=== PATIENT | female | born 1945 | race Two or more races ===

== ENCOUNTER 2018-07-05 17:50 | Emergency (ER) | payer MEDICARE, OTHER ==
--- NOTE | 2018-07-05 18:58 | RAD ---
KNEE LEFT 3V History: Severe left lateral knee pain, no trauma. Mild degenerative spurring. No acute fracture or aggressive bone destruction. Vascular calcification. IMPRESSION: No acute fracture or dislocation. Electronically signed by: Felipe Diaz MD (07/05/2018 6:55 PM) [facility]
--- NOTE | 2018-07-05 19:01 | PHYS DOC ---
Past History Past Medical History: Arthritis, Diabetes, Glaucoma, High Cholesterol, Hypertension, Other Past Medical History Rheumatoid arthritis Past Surgical History: Cholecystectomy, Hysterectomy, Lumbar Laminectomy Smoking: Non-smoker Alcohol Use: None Drug Use: None Adult General Chief Complaint Chief Complaint: KNEE INJURY HPI HPI Patient is a 73 year old female who presents with left knee pain that she states began abruptly three days ago when she was getting out of bed. The pain is described as a sharp stabbing pain on the lateral aspect of her left knee that reaches a maximal 10/10 pain when standing or moving. She has been using her 's walker to move around the house since the pain began. She has been taking naproxen BID without relief and the pain has actually worsened with the use of a heating pad at home. Laying down and decreasing movement decreases the pain. She states that she feels the left knee may be slightly more swollen than the right but denies any recent trauma or increased use that precedes the onset of her discomfort. Of note, she says that she is scheduled to see a Second Watch Sergeant on July 14 for evaluation of arthritis effecting predominantly her hands and low back. She denies any numbness, tingling, or bruising. Review of Systems Review of Systems Constitutional: Denies fever or chills [] Eyes: Denies change in visual acuity, or eye pain [] HENT: Denies nasal congestion or sore throat [] Respiratory: Denies cough or shortness of breath [] Cardiovascular: Denies chest pain or palpitations [] GI: Denies abdominal pain, nausea, vomiting or diarrhea [] : Denies dysuria or hematuria [] Musculoskeletal: Reports chronic low back pain, left knee pain, b/l wrist pain [] Integument: Denies ecchymosis or erythema [] Neurologic: Denies weakness or paresthesias [] Complete review of systems found to be within normal limits, except as documented in this note. Current Medications Current Medications Current Medications Medications (Trade) Dose Ordered Sig/Cecilio Start Time Stop Time Status Last Admin Dose Admin Dexamethasone (Decadron) 10 mg 1X ONCE 07/05/18 18:45 07/05/18 18:46 UNV Ketorolac Tromethamine (Toradol 15mg Vial) 15 mg 1X ONCE 07/05/18 18:45 07/05/18 18:46 UNV Allergies Allergies Allergies Coded Allergies Type Severity Reaction Last Updated Verified No Known Drug Allergies 07/05/18 No Physical Exam Physical Exam Constitutional: Well developed, obese, no acute distress, non-toxic appearance. [] HENT: Normocephalic, atraumatic. [] Eyes: EOMI, conjunctiva normal, no discharge. [] Cardiovascular: Heart rate regular rhythm Lungs & Thorax: Bilateral breath sounds clear to auscultation [] Abdomen: Soft and nontender [] Skin: Warm, dry, no erythema or ecchymosis over knees b/l [] Back: Scoliosis with tenderness to palpation in the left lumbar paraspinal musculature [] Extremities: Right knee full range of motion. Left knee full range of motion with pain throughout movements. No joint laxity noted in left knee upon varus or valgus testing. Negative anterior and posterior drawer. Increased pain upon Parish testing of left knee. [] Neurologic: Alert and oriented, b/l LE strength testing +5/5, sensation grossly intact LE b/l[] Psychologic: Affect normal, judgement normal, mood normal. [] Current Patient Data Vital Signs Vital Signs Date Time Temp Pulse Resp B/P (MAP) Pulse Ox O2 Delivery O2 Flow Rate FiO2 07/05/18 18:10 98.3 76 18 97 Room Air EKG EKG [] Radiology/Procedures Radiology/Procedures PROCEDURE: KNEE LEFT 3V KNEE LEFT 3V History: Severe left lateral knee pain, no trauma. Mild degenerative spurring. No acute fracture or aggressive bone destruction. Vascular calcification. IMPRESSION: No acute fracture or dislocation. Electronically signed by: Felipe Diaz MD (07/05/2018 6:55 PM) [facility][] Course & Med Decision Making Course & Med Decision Making Pertinent Imaging studies reviewed. (See chart for details) 73 year old female presents for acute onset of severe left lateral knee pain. Patient rates pain 10/10 with exertion but is pleasant and conversational during physical exam although she does exhibit discomfort. Denies any recent trauma or increased use of left knee. Patient is without weakness or paresthesias of LE and has pulses intact b/l. Plain films of left knee show no evidence of acute fracture or dislocation although there is some degenerative spurring present. Patient has an upcoming appointment on July 14 with her Second Watch Sergeant for f urther evaluation of arthritis that has predominantly effected her hands and back. Discussed with her the potential need for further imaging modalities on an outpatient basis such as MRI for evaluation of etiologies such as meniscal injury. Pain addressed with interval improvement. Patient agrees to discharge home and maintain her upcoming followup. Discussed the importance of rest, intermitting cold compresses, compression and elevation at home as well as alternating Tylenol and ibuprofen. Patient stable for discharge with outpatient follow-up with PCP/Orthopedics. Orthopedic referral provided. Discussed findings and plan with patient and family, who acknowledge understanding and agreement. [] Dragon Disclaimer Dragon Disclaimer This electronic medical record was generated, in whole or in part, using a voice recognition dictation system. Splinting Splinting : Location: Left knee Pre-Made Type: REE bandage Pre-Proc Neuro Vasc Exam: normal Post-Proc Neuro Vasc Exam: normal, unchanged from pre-exam Departure Departure: Impression: Primary Impression: Knee pain, acute Disposition: 01 HOME, SELF-CARE Condition: STABLE Referrals: TAVO AWAD (PCP) Patient Instructions: Knee Pain, [id number] Scripts Ibuprofen (MOTRIN IB) 200 Mg Tablet 600 MG PO TID PRN PRN for PAIN, #30 TAB Prov: FELIPE BAUMANN DO 07/05/18 Problem Qualifiers Primary Impression: Knee pain, acute Laterality: left Qualified Codes: M25.562 - Pain in left knee FELIPE BAUMANN DO July 05, 2018 19:01
[2018-07-05] MEDS: KETOROLAC 15 MG/ML VIAL. IM ONE (19:14)
[2018-07-05] MEDS: DEXAMETHASONE 4 MG TABLET PO ONE (19:14)
[2018-07-05] MEDS ORDERED: IBUP200T44 PO (19:28)
[2018-07-05 19:43] VITALS: BP 132/71
== END 2018-07-05 19:45 | disposition home or self-care (01) ==
LOC: ER 17:50
DX: M25.562 Pain in left knee (principal); M25.532 Pain in left wrist; M25.531 Pain in right wrist; G89.29 Other chronic pain; M54.5 Low back pain; M06.9 Rheumatoid arthritis, unspecified; E11.39 Type 2 diabetes mellitus with other diabetic ophthalmic complication; H42 Glaucoma in diseases classified elsewhere; E78.00 Pure hypercholesterolemia, unspecified; I10 Essential (primary) hypertension
CPT/HCPCS: 73562; 96372; 99284; J1885; J8540

== ENCOUNTER 2019-03-27 12:40 | Emergency (ER) | payer MEDICARE, OTHER ==
[~2019-03-27] VITALS: Ht 162.6 cm; Wt 78.5 kg
[~2019-03-27 12:40] MED LIST: IBUP200T44 PO
[2019-03-27 12:52] VITALS: BP 146/92
--- NOTE | 2019-03-27 13:00 | PHYS DOC ---
Past History Past Medical History: Arthritis, Diabetes, Glaucoma, High Cholesterol, Hypertension, Other Past Surgical History: Cholecystectomy, Hysterectomy, Lumbar Laminectomy Smoking: Non-smoker Alcohol Use: None Drug Use: None Adult General Chief Complaint Chief Complaint: PAIN ON URINATION [facility] HPI Patient is a 74 year old F who presents with urinary burning, frequency and urgency over the past 24-48 hours. She feels that these symptoms are consistent with previous urinary tract infections. She does have a history of well- controlled diabetes, hypertension, and hyperlipidemia. She denies flank pain or nausea/vomiting. She has no other associated symptoms. She has no exasperating or relieving factors. Review of Systems Review of Systems Constitutional: Denies fever or chills [] Eyes: Denies change in visual acuity, redness, or eye pain [] HENT: Denies nasal congestion or sore throat [] Respiratory: Denies cough or shortness of breath [] Cardiovascular: No additional information not addressed in HPI [] GI: Denies abdominal pain, nausea, vomiting, bloody stools or diarrhea [] : Negative except history of present illness Musculoskeletal: Denies back pain or joint pain [] Integument: Denies rash or skin lesions [] Neurologic: Denies headache, focal weakness or sensory changes [] Endocrine: Denies polyuria or polydipsia [] All other systems were reviewed and found to be within normal limits, except as documented in this note. Family History Family History No pertinent family medical history was reported Current Medications Current Medications Current medications were reviewed Allergies Allergies Allergies Coded Allergies Type Severity Reaction Last Updated Verified No Known Drug Allergies 07/05/18 No Physical Exam Physical Exam Constitutional: Well developed, well nourished, no acute distress, non-toxic appearance. [] HENT: Normocephalic, atraumatic Eyes: EOMI, conjunctiva normal, no discharge. [] Neck: Normal range of motion, no tenderness, supple, no stridor. [] Cardiovascular:Heart rate regular rhythm Lungs & Thorax: Bilateral breath sounds clear to auscultation [] Abdomen: Bowel sounds normal, soft, no tenderness, no masses, no pulsatile masses. [] Skin: Warm, dry, no erythema, no rash. [] Back: no CVA tenderness. [] Extremities: No tenderness, no cyanosis, no clubbing, ROM intact, no edema. [] Neurologic: Alert and oriented X 3, normal motor function, normal sensory function, no focal deficits noted. [] Psychologic: Affect normal, judgement normal, mood normal. [] Current Patient Data Vital Signs Vital Signs Date Time Temp Pulse Resp B/P (MAP) Pulse Ox O2 Delivery O2 Flow Rate FiO2 03/27/19 12:52 98.3 77 18 100 Room Air Lab Results Laboratory Tests Test 03/27/19 12:56 Urine Collection Type Unknown Urine Color Yellow Urine Clarity Clear Urine pH 6.5 Urine Specific [place] 1.015 Urine Protein Neg (NEG-TRACE) Urine Glucose (UA) Neg mg/dL (NEG) Urine Ketones (Stick) Neg mg/dL (NEG) Urine Blood Neg (NEG) Urine Nitrite Neg (NEG) Urine Bilirubin Neg (NEG) Urine Urobilinogen Dipstick 0.2 mg/dL (0.2 mg/dL) Urine Leukocyte Esterase Trace (NEG) Urine RBC 0 /HPF (0-2) Urine WBC 5-10 /HPF (0-4) Urine Squamous Epithelial Cells None /LPF Urine Bacteria Few /HPF (0-FEW) EKG EKG [] Radiology/Procedures Radiology/Procedures [] Course & Med Decision Making Course & Med Decision Making Pertinent Labs and Imaging studies reviewed. (See chart for details) [] Dragon Disclaimer Dragon Disclaimer This electronic medical record was generated, in whole or in part, using a voice recognition dictation system. Departure Departure: Impression: Primary Impression: UTI (urinary tract infection) Disposition: HOME, SELF-CARE Condition: STABLE Referrals: ROCIO OCAMPO DO (PCP) Patient Instructions: Urinary Tract Infection Additional Instructions: Meghan was seen in the emergency department for urinary symptoms. No emergency medical condition was found on history physical exam. Her symptoms are most consistent with urinary tract infection. She was started on antibiotic. She was advised follow up with her primary care doctor as needed for further management. She was also advised to return to the emergency room if she develops new or worsening symptoms. Scripts Cefdinir (CEFDINIR) 300 Mg Capsule 1 CAP PO BID for 5, #14 CAP Prov: LOKESH GALICIA MD 03/27/19 Problem Qualifiers Primary Impression: UTI (urinary tract infection) Urinary tract infection type: acute cystitis Hematuria presence: without hematuria Qualified Codes: N30.00 - Acute cystitis without hematuria LOKESH GALICIA MD Mar 27, 2019 13:00
[2019-03-27 13:37] LABS: CLARITY,URINE CLEAR; COLOR,URINE YELLOW
[2019-03-27 13:38] LABS: BACTERIA,URINE FEW /HPF (0-FEW); BILIRUBIN,URINE NEG (NEG); GLUCOSE,URINE NEG (NEG); NITRITE,URINE NEG (NEG); RBC,URINE 0 /HPF (0-2); UROBILINOGEN,URINE 0.2 mg/dL (0.2 mg/dL)
[2019-03-27] MEDS ORDERED: CEFD300C PO (14:03)
== END 2019-03-27 14:21 | disposition home or self-care (01) ==
LOC: ER 12:40
DX: N39.0 Urinary tract infection, site not specified (principal); E11.9 Type 2 diabetes mellitus without complications; I10 Essential (primary) hypertension; M19.90 Unspecified osteoarthritis, unspecified site; E78.00 Pure hypercholesterolemia, unspecified; Z90.710 Acquired absence of both cervix and uterus; Z90.49 Acquired absence of other specified parts of digestive tract
CPT/HCPCS: 81001; 87086; 87186; 99284

== ENCOUNTER → 2019-10-19 | Outpatient (CLI) | payer MEDICARE, OTHER ==
[~2019-10-19] MED LIST changes: +CEFD300C PO
== END | disposition home or self-care (01) ==
LOC: LAB 09:43
PROVIDERS: ATTEND Registered Nurse
DX: Z01.818 Encounter for other preprocedural examination (principal); Z11.59 Encounter for screening for other viral diseases; H26.9 Unspecified cataract
CPT/HCPCS: U0003-CS

== ENCOUNTER → 2019-10-23 | Day surgery (SDC) | payer MEDICARE, OTHER ==
[~2019-10-23] MED LIST changes: +BALANCED SALT IRRIG OPHTH SOLN 15 ML BOTTLE. IRR ONE; +CATARACT OPHTH GEL 0.5 ML SYRINGE. OS ONE; +CHONDROIT-SOD-HYALURONATE KIT. OS ONE; +EPINEPHrine AMPULE 0.5 MG in BALANCED SALT IRRIG SOLN PLUS 500 ML IO ONE; +ERYTHROMYCIN 0.5% OPHTH OINTMENT 1GM TUBE. OS ONE; +HYALURONIDASE 75UNITS in LIDOCAINE 2% PF OPHTH 10 ML SYRINGE. ONE; +HYALURONIDASE 75UNITS in LIDOCAINE 2% PF OPHTH 10 ML SYRINGE. OS ONE; +IPRATRPIUM/ALBUTEROL 0.5/2.5MG 3 ML NEBU. NEB PRN; +IV RINGERS SOLUTION,LACTATED 1,000 ML IV SCH; +KETOROLAC TROMETHAMINE 0.5% OPHTH SOLUTION BOTTLE. ONE; +KETOROLAC TROMETHAMINE 0.5% OPHTH SOLUTION BOTTLE. OS SCH; +MIDAZOLAM HCL PF 2 MG/2 ML VIAL. IV ONE; +MOXIFLOXACIN 0.5% OPHTH SOLUTION 3ML BOTTLE. OS SCH; +ONDANSETRON PF 4 MG/2 ML VIAL. IV PRN; +POVIDONE-IODINE 5% OPHTH SOLUTION 30ML BOTTLE. OS ONE; +PROPOFOL 10,000 MCG/ML (20ML) VIAL IV ONE; +TETRACAINE 0.5% OPHTH SOLUTION 4ML BOTTLE. OS ONE; +TETRACAINE 0.5% OPHTH SOLUTION 4ML BOTTLE. OU ONE; +prednisoLONE ACETATE 1% OPHTH SUSPENSION 5ML BOTTLE. ONE; +prednisoLONE ACETATE 1% OPHTH SUSPENSION 5ML BOTTLE. OS SCH
[2019-10-23] MEDS: MOXIFLOXACIN 0.5% OPHTH SOLUTION 3ML BOTTLE. OS SCH ×3 (08:49→08:59)
--- NOTE | 2019-10-23 09:30 | PDOC4 ---
Phaco IOL/Cataract/OS Date of Procedure: Oct 23, 2019 Preoperative Diagnosis: Senile Cataract, Left Eye Postoperative Diagnosis: Senile Cataract, Left Eye Anesthesia: Local (Block) with monitored anesthesia care Surgeon: Amanda Salinas D.O. Procedure: Left Phacoemulsification with Intraocular Lens Implant Findings: Senile Cataract Indications: Worsening vision interfering with patient's lifestyle Narrative: After discussing the risks, complications and alternatives, including but not limited to loss of vision, infection, bleeding, swelling, anesthetic reaction, capsule rupture with vitreous loss, etc., the patient was given a peribulbar block under mild IV sedation and cardiac monitoring. Pressure was applied to the eye for approximately 10 minutes. The patient was transferred to the main operating room and was prepped and draped in the usual sterile fashion and positioned under the microscope. A lid speculum was placed. A temporal clear corneal incision was made with a keratome and viscoelastic was injected into the eye. A side port incision was made. A continuous tear capsulorrhexis was performed, then hydrodissection was accomplished with balanced salt solution. The phacoemulsification needle was placed in the eye and the nucleus was emulsified. The remaining cortical material was removed with the irrigation and aspiration apparatus. The capsule was polished as needed. The posterior capsule was noted to be clean and intact. Viscoelastic was injected into the eye inflating the capsular bag. An intraocular lens was injected into the eye, unfolding as desired and was positioned in the capsular bag. The viscoelastic was aspirated from the eye. The wound edges were hydrated with balanced salt solution and there were no leaks. Viscoelastic was injected over the limbal incisions. Antibiotic and steroid were placed on the eye. The lid speculum was removed, the eye patched shut and a Reyes shield applied. There were no complications and the patient was taken to the PACU in good condition. AMANDA SALINAS DO Oct 23, 2019 09:30
[2019-10-23 09:49] VITALS: BP 124/51
== END | disposition home or self-care (01) ==
LOC: SURG 07:28
PROVIDERS: ATTEND Ophthalmology
DX: H25.12 Age-related nuclear cataract, left eye (principal); E11.36 Type 2 diabetes mellitus with diabetic cataract; I10 Essential (primary) hypertension; M19.90 Unspecified osteoarthritis, unspecified site; G47.33 Obstructive sleep apnea (adult) (pediatric); Z90.710 Acquired absence of both cervix and uterus; Z98.890 Other specified postprocedural states; Z79.899 Other long term (current) drug therapy; Z79.84 Long term (current) use of oral hypoglycemic drugs
CPT/HCPCS: 66984; 82947; J0171; J2704; V2632

== ENCOUNTER 2020-03-04 13:41 | Inpatient (IN) | payer MEDICARE, OTHER ==
[~2020-03-04] VITALS: Ht 152.4 cm; Wt 77.5 kg
[~2020-03-04 13:41] MED LIST changes: -BALANCED SALT IRRIG OPHTH SOLN 15 ML BOTTLE. IRR ONE; -CATARACT OPHTH GEL 0.5 ML SYRINGE. OS ONE; -CHONDROIT-SOD-HYALURONATE KIT. OS ONE; -EPINEPHrine AMPULE 0.5 MG in BALANCED SALT IRRIG SOLN PLUS 500 ML IO ONE; -ERYTHROMYCIN 0.5% OPHTH OINTMENT 1GM TUBE. OS ONE; -HYALURONIDASE 75UNITS in LIDOCAINE 2% PF OPHTH 10 ML SYRINGE. ONE; -HYALURONIDASE 75UNITS in LIDOCAINE 2% PF OPHTH 10 ML SYRINGE. OS ONE; -IPRATRPIUM/ALBUTEROL 0.5/2.5MG 3 ML NEBU. NEB PRN; -IV RINGERS SOLUTION,LACTATED 1,000 ML IV SCH; -KETOROLAC TROMETHAMINE 0.5% OPHTH SOLUTION BOTTLE. ONE; -KETOROLAC TROMETHAMINE 0.5% OPHTH SOLUTION BOTTLE. OS SCH; -MIDAZOLAM HCL PF 2 MG/2 ML VIAL. IV ONE; -MOXIFLOXACIN 0.5% OPHTH SOLUTION 3ML BOTTLE. OS SCH; -ONDANSETRON PF 4 MG/2 ML VIAL. IV PRN; -POVIDONE-IODINE 5% OPHTH SOLUTION 30ML BOTTLE. OS ONE; -PROPOFOL 10,000 MCG/ML (20ML) VIAL IV ONE; -TETRACAINE 0.5% OPHTH SOLUTION 4ML BOTTLE. OS ONE; -TETRACAINE 0.5% OPHTH SOLUTION 4ML BOTTLE. OU ONE; -prednisoLONE ACETATE 1% OPHTH SUSPENSION 5ML BOTTLE. ONE; -prednisoLONE ACETATE 1% OPHTH SUSPENSION 5ML BOTTLE. OS SCH
[2020-03-04 14:36] LABS: BASO % 0 % (0-3); EOS % 0 % (0-3); HEMATOCRIT 36.6 % (36.0-47.0); HEMOGLOBIN 11.9 g/dL (12.0-15.5); LYMPH # 0.9 x10^3/uL (1.0-4.8); LYMPH % 25 % (24-48); MEAN CORPUSCULAR HEMOGLOBIN 28 pg (25-35); MEAN CORPUSCULAR HGB CONC 33 g/dL (31-37); MEAN CORPUSCULAR VOLUME 85 fL (79-100); MONO # 0.4 x10^3/uL (0.0-1.1); MONO % 11 % (0-9); NEUT # 2.3 x10^3uL (1.8-7.7); NEUT % 64 % (31-73); PLATELET COUNT 250 x10^3/uL (140-400); RED BLOOD COUNT 4.32 x10^6/uL (3.50-5.40); RED CELL DISTRIBUTION WIDTH 17.1 % (11.5-14.5); WHITE BLOOD COUNT 3.7 x10^3/uL (4.0-11.0)
--- NOTE | 2020-03-04 14:45 | RAD ---
Examination: XR CHEST 1V History: Reason: covid + 02/26, feels fatigued / Spl. Instructions: / History: Comparison/Correlation: None Findings: Portable erect frontal view of the chest was obtained. Limited pulmonary infiltration noted . The size and pulmonary vasculature are normal. No infiltrate. Minimal linear atelectasis in the ret rocardiac basal aspect is present. Bony structures are intact. Impression: No infiltrate. Electronically signed by: Don Goodman MD (03/04/2020 2:42 PM) [id number]
[2020-03-04 15:00] LABS: ALBUMIN 3.3 g/dL (3.4-5.0); ALBUMIN/GLOBULIN RATIO 0.8 (1.0-1.7); ALK PHOS 63 U/L (46-116); ALT (SGPT) 25 U/L (14-59); ANION GAP 9 (6-14); AST (SGOT) 33 U/L (15-37); BLOOD UREA NITROGEN 18 mg/dL (7-20); BUN/CREATININE RATIO 18 (6-20); CALCIUM 8.6 mg/dL (8.5-10.1); CARBON DIOXIDE 28 mmol/L (21-32); CHLORIDE 99 mmol/L (98-107); GFR 54.2; GLUCOSE 93 mg/dL (70-99); SODIUM 136 mmol/L (136-145); TOTAL BILIRUBIN 0.3 mg/dL (0.2-1.0); TOTAL PROTEIN 7.4 g/dL (6.4-8.2)
[2020-03-04 15:07] LABS: POTASSIUM 2.9 mmol/L (3.5-5.1)
[2020-03-04] MEDS ORDERED: POTASSIUM CHLORIDE 20 MEQ TABLET.ER. PO ONE (15:09)
--- NOTE | 2020-03-04 15:40 | PHYS DOC ---
Past History Past Medical History: Arthritis, Diabetes, Glaucoma, High Cholesterol, Hypertension, Other Past Surgical History: Cholecystectomy, Hysterectomy, Lumbar Laminectomy Smoking: Non-smoker Alcohol Use: None Drug Use: None General Adult EDM: Chief Complaint: FATIGUE HPI: HPI: Patient is a 75-year-old female who presents to the emergency department with complaints of increased fatigue after testing positive for COVID-19 on February 27, 2020. Patient denies any chest pain, shortness of breath, palpitations, nausea, vomiting, abdominal pain, or headache. She states she has had aching in both of her shoulders and her hips and a fever. She also reports that she has had 2 or 3 episodes of diarrhea today. She denies any blood in her stool. Patient currently denies any pain. Review of Systems: Review of Systems: Complete ROS is negative unless otherwise noted in HPI. Current Medications: Current Meds: Current Medications Medications (Trade) Dose Ordered Sig/Cecilio Start Time Stop Time Status Last Admin Dose Admin Potassium Chloride (Klor-Con) 20 meq STK-MED ONCE 03/04/20 15:09 03/04/20 15:10 DC Allergies: Allergies: Allergies Coded Allergies Type Severity Reaction Last Updated Verified No Known Drug Allergies 10/15/19 No Physical Exam: PE: See Above Constitutional: Well developed, well nourished, no acute distress, non-toxic appearance. [] HENT: Normocephalic, atraumatic, bilateral external ears normal, nose normal. [] Eyes: PERRLA, EOMI, conjunctiva normal, no discharge. [] Neck: Normal range of motion, no stridor. [] Cardiovascular:Heart rate regular rhythm Lungs & Thorax: Respirations even and unlabored, no retractions, no respiratory distress, oxygen saturation 89-92% on room air Skin: Warm, dry, no erythema, no rash. [] Extremities: No cyanosis, ROM intact, no edema. [] Neurologic: Alert and oriented X 3, no focal deficits noted. [] Psychologic: Affect normal, judgement normal, mood normal. [] Current Patient Data: Labs: Laboratory Tests Test 03/04/20 14:04 White Blood Count 3.7 x10^3/uL (4.0-11.0) L Red Blood Count 4.32 x10^6/uL (3.50-5.40) Hemoglobin 11.9 g/dL (12.0-15.5) L Hematocrit 36.6 % (36.0-47.0) Mean Corpuscular Volume 85 fL (79-100) Mean Corpuscular Hemoglobin 28 pg (25-35) Mean Corpuscular Hemoglobin Concent 33 g/dL (31-37) Red Cell Distribution Width 17.1 % (11.5-14.5) H Platelet Count 250 x10^3/uL (140-400) Neutrophils (%) (Auto) 64 % (31-73) Lymphocytes (%) (Auto) 25 % (24-48) Monocytes (%) (Auto) 11 % (0-9) H Eosinophils (%) (Auto) 0 % (0-3) Basophils (%) (Auto) 0 % (0-3) Neutrophils # (Auto) 2.3 x10^3uL (1.8-7.7) Lymphocytes # (Auto) 0.9 x10^3/uL (1.0-4.8) L Monocytes # (Auto) 0.4 x10^3/uL (0.0-1.1) Eosinophils # (Auto) 0.0 x10^3/uL (0.0-0.7) Basophils # (Auto) 0.0 x10^3/uL (0.0-0.2) Sodium Level 136 mmol/L (136-145) Potassium Level 2.9 mmol/L (3.5-5.1) *L Chloride Level 99 mmol/L (98-107) Carbon Dioxide Level 28 mmol/L (21-32) Anion Gap 9 (6-14) Blood Urea Nitrogen 18 mg/dL (7-20) Creatinine 1.0 mg/dL (0.6-1.0) Estimated GFR (Cockcroft-Gault) 54.2 BUN/Creatinine Ratio 18 (6-20) Glucose Level 93 mg/dL (70-99) Calcium Level 8.6 mg/dL (8.5-10.1) Magnesium Level 2.0 mg/dL (1.8-2.4) Total Bilirubin 0.3 mg/dL (0.2-1.0) Aspartate Amino Transferase (AST) 33 U/L (15-37) Alanine Aminotransferase (ALT) 25 U/L (14-59) Alkaline Phosphatase 63 U/L (46-116) Creatine Kinase 62 U/L (26-192) Creatine Kinase MB (Mass) < 0.5 ng/mL (0.0-3.6) Creatine Kinase MB Relative Index 0.8 % (0-4) Total Protein 7.4 g/dL (6.4-8.2) Albumin 3.3 g/dL (3.4-5.0) L Albumin/Globulin Ratio 0.8 (1.0-1.7) L Vital Signs: Vital Signs Date Time Temp Pulse Resp B/P (MAP) Pulse Ox O2 Delivery O2 Flow Rate FiO2 03/04/20 14:11 99.5 78 16 122/64 (83) 93 EKG: EKG: [] Radiology/Procedures: Radiology/Procedures: PROCEDURE: CHEST AP ONLY Examination: XR CHEST 1V History: Reason: covid + 02/26, feels fatigued / Spl. Instructions: / History: Comparison/Correlation: None Findings: Portable erect frontal view of the chest was obtained. Limited pulmonary infiltration noted. The size and pulmonary vasculature are normal. No infiltrate. Minimal linear atelectasis in the retrocardiac basal aspect is present. Bony structures are intact. Impression: No infiltrate. Electronically signed by: Don Goodman MD (03/04/2020 2:42 PM) [id number] [] Heart Score: Risk Factors: Risk Factors: DM, Current or recent (<one month) smoker, HTN, HLP, family history of CAD, obesity. Risk Scores: Score 0 - 3: 2.5% MACE over next 6 weeks - Discharge Home Score 4 - 6: 20.3% MACE over next 6 weeks - Admit for Clinical Observation Score 7 - 10: 72.7% MACE over next 6 weeks - Early Invasive Strategies Course & Med Decision Making: Course & Med Decision Making Pertinent Labs and Imaging studies reviewed. (See chart for details) [id number] with Dr. Yarbrough who is the admitting physician, and care was assumed following discussion of patient. Will admit patient to [facility] for COVID-19, respiratory failure, hypoxia. Will write order for oxygen via nasal cannula and diabetic diet as requested. Patient's vital signs stable. Patient remains afebrile, appears nontoxic, respirations even and unlabored oxygen saturation improved with O2 in place. Patient will be admitted to the medical surgical floor. Patient's case and plan of care also discussed with Dr. Gonzalez [] Gila Disclaimer: Gila Disclaimer: This electronic medical record was generated, in whole or in part, using a voice recognition dictation system. Departure Departure: Impression: Primary Impression: COVID-19 Additional Impression: Respiratory failure with hypoxia Qualified Codes: J96.01 - Acute respiratory failure with hypoxia Disposition: 09 ADMITTED INPT THIS HOSP Admitting Physician: Jese Yarbrough Condition: STABLE Referrals: ROCIO OCAMPO DO (PCP) JETHRO [employer] Mar 04, 2020 15:40
--- NOTE | 2020-03-04 18:00 | NUR ---
ADMISSION NOTE_ Patient arrived on unit with personal belongings via EMS from the ED. Patient is alert, oriented x 4, fatigued; skin very warm to touch, complain of nausea. She states last bowel movement was in the ED, described it as loose. Patient states her medication list is at home and that her daughter can bring it in. Patient orientated to unit and room, phone and call light within reach. Temperature is elevated, paged. Will continue to monitor and report to oncoming shift.
[2020-03-04 19:51] VITALS: BP 133/66
[2020-03-04] MEDS ORDERED: HYDR-2145 PO (19:59)
[2020-03-04] MEDS ORDERED: MAGN500C10 PO (19:59)
[2020-03-04] MEDS ORDERED: FLAX100031 PO (19:59)
[2020-03-04] MEDS ORDERED: BIOT25006 PO (19:59)
[2020-03-04] MEDS ORDERED: METF10007 PO (19:59)
[2020-03-04] MEDS ORDERED: BIMA2.5D EACHEYE (19:59)
[2020-03-04] MEDS ORDERED: ASPI-630 PO (19:59)
[2020-03-04] MEDS ORDERED: CALC-77 PO (19:59)
[2020-03-04] MEDS ORDERED: AMLO1CAP3 PO (19:59)
[2020-03-04] MEDS ORDERED: METO-239 PO (19:59)
[2020-03-04] MEDS ORDERED: CYAN250012 PO (19:59)
[2020-03-04] MEDS ORDERED: NAPR500T8 PO (19:59)
[2020-03-04] MEDS ORDERED: SITA100T PO (19:59)
[2020-03-04] MEDS ORDERED: [UNRECOGNIZED DRUG - OTHER] (19:59)
[2020-03-04] MEDS ORDERED: SIMV20TA PO (19:59)
[2020-03-04] MEDS: LATANOPROST 0.005% OPHTH SOLUTION 2.5ML BOTTLE. OU SCH (21:00)
[2020-03-04] MEDS: ACETAMINOPHEN 500 MG TABLET PO PRN (21:29)
[2020-03-04] MEDS: SIMVASTATIN 20 MG TABLET PO SCH (21:29)
[2020-03-04 22:48] VITALS: BP 132/60
[2020-03-05 06:00] VITALS: BP 157/60
[2020-03-05 06:11] LABS: CALCIUM 8.3 mg/dL (8.5-10.1); CREATININE 0.9 mg/dL (0.6-1.0); GFR 61.2; POTASSIUM 3.5 mmol/L (3.5-5.1)
[2020-03-05] MEDS ORDERED: BENAZEPRIL PO SCH (09:00)
[2020-03-05] MEDS ORDERED: AMLODIPINE BESYLATE PO SCH (09:00)
[2020-03-05] MEDS: amLODIPine BESYLATE 5 MG TABLET PO SCH (09:45)
[2020-03-05] MEDS: CYANOCOBALAMIN (VITAMIN B-12) 1,000 MCG TABLET. PO SCH (09:45)
[2020-03-05] MEDS: METOPROLOL SUCC 24HR ER 25 MG TAB.ER.24H. PO SCH (09:46)
[2020-03-05] MEDS: LOSARTAN 50 MG TABLET. PO SCH (09:46)
[2020-03-05] MEDS: ASPIRIN CHEWABLE 81 MG TABLET. PO SCH (09:46)
[2020-03-05] MEDS: metFORMIN XR 500 MG TAB.ER.24H PO SCH (09:47)
[2020-03-05] MEDS: LINAGLIPTIN 5 MG TABLET PO SCH (09:48)
[2020-03-05] MEDS: MAGNESIUM OXIDE 400 MG TABLET PO SCH (09:48)
[2020-03-05] MEDS: CALCIUM CARB/VIT D3 500/200 TABLET PO SCH (09:48)
[2020-03-05 11:12] VITALS: BP 97/58
[2020-03-05] MEDS ORDERED: LOPERAMIDE 2 MG CAPSULE PO PRN (11:15)
--- NOTE | 2020-03-05 14:43 | HP ---
ADMIT DATE: 03/04/2020 HISTORY OF PRESENT ILLNESS: The patient is a 75-year-old female patient from [place], who presented to the Emergency Room with a complaint of increasing fatigue after testing positive for COVID-19 on 02/27/2020. The patient denied any chest pain, shortness of breath, palpitations, nausea, vomiting, abdominal pain or headache. She states she had had aching in both of her shoulders and her hips and fever. She also reported that she has 2 episodes of diarrhea today. She denies any blood in her stool. The patient currently denying any pain. She was extensively investigated in the Emergency Room and her lab work initially showed marked hypokalemia with potassium of 2.9. Her CBC showed that she has leukocytosis and normochromic normocytic anemia. Her chest x-ray portable showed that limited pulmonary infiltrate noted. The size and pulmonary vasculature are normal. No infiltrate. Minimal linear atelectasis in the retrocardiac basilar aspect at present. Bony structures are intact. Basically, the impression is that the patient has no infiltrate. She was admitted with diagnosis of COVID-19 infection, respiratory failure with hypoxia, was continued on all her medications. Her potassium was replenished. PAST MEDICAL HISTORY: Significant for type 2 diabetes mellitus, hypertension, hyperlipidemia, rheumatoid arthritis. PAST SURGICAL HISTORY: Significant for back surgery, total abdominal hysterectomy, cholecystectomy, left eye cataract extraction. A benign lump was removed from her back. ALLERGIES: She has no known drug allergies. MEDICATIONS: She is currently on following medications: She is on simvastatin 20 mg at bedtime, metoprolol succinate 25 mg once a day, amlodipine besylate/benazepril 5/40 one tablet once a day, aspirin 81 mg once a day, naproxen 500 mg as needed, calcium carbonate with vitamin D 1 tablet daily, hydrochlorothiazide 25 mg daily, Lumigan 1 drop each eye at bedtime, magnesium oxide 500 mg daily, metformin 1000 mg daily, sitagliptin phosphate 100 mg daily, Biotin 5000 mcg p.o. daily, cyanocobalamin for vitamin B12 2500 mcg tablet chewable 1 tablet once a day and flaxseed oil 1000 mg daily. FAMILY HISTORY: She has 1 brother and 2 sisters, all older. Her brother is alive at the age of 95. Her sisters are 85 and 80. Her mother at age of 69 because of cancer of the pancreas. Father at age of 87 because of kidney failure. SOCIAL HISTORY: She is , has a son and a daughter. She never smoked, does not drink alcohol or use any recreational drugs. 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 REVIEW OF SYSTEMS: As per history of present illness. PHYSICAL EXAMINATION: GENERAL: On arrival to the Emergency Room, she looked well and was clearly in no apparent respiratory distress. No pallor, jaundice, cyanosis or thyromegaly. No jugular venous distention. No lower limb edema. VITAL SIGNS: Her heart rate was 78, blood pressure was 122/64, temperature was 99.5, respiratory rate was 16, and oxygen saturation was 93%. HEAD, EYES, EARS, NOSE AND THROAT: Showed normocephalic, atraumatic. NECK: Supple. HEART: Showed normal first and second heart sounds. No gallop, rub or murmur. CHEST: Clear to auscultation. No crepitation or rhonchi. ABDOMEN: Distended, soft, nontender. NEUROLOGIC: She is awake, alert, responding appropriately. All cranial nerves intact. EXTREMITIES: She moves extremities without difficulty. She ambulates without assistance or assistive devices. LABORATORY DATA: Her lab work on admission showed a white cell count of 3700, hemoglobin 11.9, hematocrit 36.6, MCV 85 and platelet count 250,000. Her initial chemistry showed a serum sodium 136, potassium 2.9, chloride 99, bicarbonate 28, anion gap of 9, BUN 18, creatinine 1, estimated GFR was 54 mL per minute. Her glucose was 93, calcium was 8.6, magnesium 2. Total bilirubin, AST, ALT, alkaline phosphatase were normal. CK was 62 and total protein was 7.4, albumin was 3.3. ASSESSMENT AND PLAN: In summary, this is a 75-year-old [place] female patient, who was admitted with COVID-19 infection, acute hypoxic respiratory failure; however, there is no evidence of any infiltrate. She has multiple other medical problems including type 2 diabetes mellitus, hypertension, hyperlipidemia, and osteoarthritis versus rheumatoid arthritis. PLAN: To continue with all her current medication. I will add dexamethasone. I did repeat her chest x-ray as well as her lab work tomorrow and decide on further management accordingly. ISAIAH ARIZMENDI MD DR: LIUS/jeromy JOB#: [id number] / [id number]
[2020-03-05 15:24] VITALS: BP 128/51
[2020-03-05] MEDS: ENOXAPARIN 40 MG/0.4 ML SYRINGE. SQ SCH (17:06)
--- NOTE | 2020-03-05 18:41 | PN ---
DATE: 03/05/2020 SUBJECTIVE: The patient is resting, slightly propped up in bed, in no apparent distress. She is awake, alert, continued to complain of aches and pains all over, particularly in her hips and shoulders. She has some dry cough, but denied any shortness of breath. PHYSICAL EXAMINATION: GENERAL: When I examined her, she looked well and was clearly in no apparent respiratory distress. No pallor, jaundice, cyanosis or thyromegaly. No jugular venous distention. No lower limb edema. VITAL SIGNS: Her heart rate was 87, blood pressure was 97/58, temperature was 99.7, respiratory rate was 17 and oxygen saturation was 92%. HEENT: Showed normocephalic, atraumatic. NECK: Supple. HEART: Showed normal first and second heart sounds. No gallop, rub or murmur. CHEST: Clear to auscultation. No crepitation or rhonchi. ABDOMEN: Distended, soft, nontender. NEUROLOGIC: She is grossly intact. LABORATORY DATA: Her lab work this morning showed a serum sodium 138, potassium 3.5, chloride 101, bicarbonate 29, anion gap of 8, BUN 15, creatinine 0.9, estimated GFR was 61 mL per minute. Her glucose 127, calcium was 8.3. ASSESSMENT: 1. COVID-19 infection. 2. Acute hypoxic respiratory failure. Other medical problems include hypertension, hyperlipidemia, diabetes mellitus as well as rheumatoid arthritis versus osteoarthritis. PLAN: To repeat all her lab work. I started her on dexamethasone. I will also start her on Lovenox and if her oxygen requirement continued to be high, we will do a CT angio of the chest. ISAIAH ARIZMENDI MD DR: LUIS/jeromy JOB#: [id number] / [id number]
[2020-03-05] MEDS ORDERED: DICLOFENAC SODIUM 1% TOPICAL GEL 100GM TUBE. TP PRN (19:00)
[2020-03-05 19:44] VITALS: BP 121/58
[2020-03-05] MEDS: LATANOPROST 0.005% OPHTH SOLUTION 2.5ML BOTTLE. OU SCH (21:00)
[2020-03-05] MEDS: SIMVASTATIN 20 MG TABLET PO SCH (21:04)
[2020-03-05] MEDS: ACETAMINOPHEN 500 MG TABLET PO PRN (21:05)
[2020-03-05 22:30] VITALS: BP 106/45
[2020-03-06 05:37] VITALS: BP 110/59
--- NOTE | 2020-03-06 06:04 | RAD ---
XR CHEST 1V 03/06/2020 5:27 AM INDICATION: Worsening hypoxia, shortness of air. Covid. COMPARISON: 03/04/2020 TECHNIQUE: Portable frontal view of the chest is provided. FINDINGS: The cardiomediastinal silhouette is within normal limits. Lungs are clear. There are no significant pleural effusions. There is no pulmonary vascular congestion. No pneumothora x. No suspicious osseous abnormality. IMPRESSION: There is no acute cardiopulmonary process. Electronically signed by: Marianna Tong MD (03/06/2020 6:01 AM) [facility]
[2020-03-06 06:57] LABS: HEMATOCRIT 35.8 % (36.0-47.0); HEMOGLOBIN 11.6 g/dL (12.0-15.5); RED BLOOD COUNT 4.23 x10^6/uL (3.50-5.40); RED CELL DISTRIBUTION WIDTH 17.7 % (11.5-14.5); WHITE BLOOD COUNT 3.5 x10^3/uL (4.0-11.0)
[2020-03-06 07:08] LABS: ALBUMIN 2.8 g/dL (3.4-5.0); ALBUMIN/GLOBULIN RATIO 0.7 (1.0-1.7); C REACTIVE PROTEIN 9.9 mg/L (0-3.3); CALCIUM 8.2 mg/dL (8.5-10.1); CREATININE 0.7 mg/dL (0.6-1.0); GFR 81.8; POTASSIUM 3.4 mmol/L (3.5-5.1); TOTAL BILIRUBIN 0.3 mg/dL (0.2-1.0); TOTAL PROTEIN 6.8 g/dL (6.4-8.2)
[2020-03-06] MEDS: CALCIUM CARB/VIT D3 500/200 TABLET PO SCH (08:19)
[2020-03-06] MEDS: metFORMIN XR 500 MG TAB.ER.24H PO SCH (08:19)
[2020-03-06] MEDS: ASPIRIN CHEWABLE 81 MG TABLET. PO SCH (08:20)
[2020-03-06] MEDS: amLODIPine BESYLATE 5 MG TABLET PO SCH (08:20)
[2020-03-06] MEDS: LOSARTAN 50 MG TABLET. PO SCH (08:20)
[2020-03-06] MEDS: LINAGLIPTIN 5 MG TABLET PO SCH (08:21)
[2020-03-06] MEDS: DEXAMETHASONE SOD PHOS 4 MG/ML VIAL. IVP SCH (08:21)
[2020-03-06] MEDS: MAGNESIUM OXIDE 400 MG TABLET PO SCH (08:21)
[2020-03-06] MEDS: CYANOCOBALAMIN (VITAMIN B-12) 1,000 MCG TABLET. PO SCH (08:21)
[2020-03-06] MEDS: METOPROLOL SUCC 24HR ER 25 MG TAB.ER.24H. PO SCH (08:21)
[2020-03-06] MEDS: ENOXAPARIN 40 MG/0.4 ML SYRINGE. SQ SCH (08:22)
[2020-03-06 11:03] VITALS: BP 115/62
[2020-03-06] MEDS ORDERED: IOHEXOL 350 MG/ML 100 ML VIAL. IV ONE (14:30)
[2020-03-06 14:53] VITALS: BP 99/51
--- NOTE | 2020-03-06 15:46 | RAD ---
Exam: CT of chest with contrast INDICATION: Hypoxia, respiratory failure with elevated d-dimer TECHNIQUE: Sequential axial images through the chest obtained following the administration of 5 mL of Isovue-370 IV contrast. Sagittal and coronal reformatted images were reconstructed from the axial da ta and reviewed. 3-D reformatted images were reconstructed from the axial data and reviewed. Comparisons: Chest x-ray same day FINDINGS: Visualized portions of the thyroid are unremarkable. No enlarged mediastinal lymph nodes are identifi ed. Heart size is normal. No pericardial effusion. Thoracic aorta has a normal course and caliber. Pulmon jodee artery is not enlarged. No pulmonary embolus identified within the main, lobar or segmental pulmo nary arteries Airways are patent. There are strandy opacities at the lung bases bilaterally. No consolidation or pn eumothorax. No suspicious lung nodules. Mild diffuse hepatic steatosis. Visualized upper abdomen is unremarkable. No suspicious osseous lesions or acute fractures. IMPRESSION: 1. No pulmonary embolus segmental pulmonary arteries. 2. Linear bandlike opacity at the lungs bilaterally may relate to extensive atelectasis or scarring. 3. Diffuse hepatic steatosis. Exposure: One or more of the following in the visualized dose reduction techniques were utilized for this examination: 1. Automated exposure control 2. Adjustment of the MA and/or KV according to patient size 3. Use of iterative of reconstructive technique Electronically signed by: Cami Dobson MD (03/06/2020 3:44 PM) [facility]
[2020-03-06] MEDS: SIMVASTATIN 20 MG TABLET PO SCH (20:17)
[2020-03-06] MEDS: LATANOPROST 0.005% OPHTH SOLUTION 2.5ML BOTTLE. OU SCH (20:17)
[2020-03-06 20:41] VITALS: BP 119/54
[2020-03-07 00:08] VITALS: BP 116/54
--- NOTE | 2020-03-07 00:37 | PN ---
DATE: 03/06/2020 SUBJECTIVE: The patient is resting, almost flat in bed, in no apparent distress. She is feeling generally much better. Her aches and pains are improved. She has no nausea or vomiting. Her appetite is slightly better today; however, she continued to require oxygen. We did repeat a chest x-ray, which again showed no evidence of acute cardiopulmonary process. Her D-dimer was slightly elevated and therefore, a decision was made to arrange for her to have a CT angio of the chest to rule out possibility of pulmonary embolism. PHYSICAL EXAMINATION: GENERAL: When I examined her this afternoon, she looked well and was clearly in no apparent respiratory distress. No pallor, jaundice, cyanosis or thyromegaly. No jugular venous distention. No lower limb edema. VITAL SIGNS: Her heart rate was 76, blood pressure was 115/62, temperature was 98.8, respiratory rate 20, and her oxygen saturation was 95% on 2 liters of oxygen. HEAD, EYES, EARS, NOST AND THROAT: Showed normocephalic, atraumatic. NECK: Supple. HEART: Normal first and second heart sounds. No gallop, rub or murmur. CHEST: Clear to auscultation. No crepitation or rhonchi. ABDOMEN: Distended, soft, nontender. NEUROLOGIC: She is grossly intact. LABORATORY DATA: Showed a white cell count of 3500, hemoglobin 11.6, hematocrit 35.8, MCV 85 and platelet count 280,000. Her chemistry showed a serum sodium 139, potassium 3.4, chloride 103, bicarbonate 28, anion gap of 8, BUN 13, creatinine 0.7, estimated GFR was 81 mL per minute. Her glucose 100, calcium was 8.2. Total bilirubin, AST, ALT, alkaline phosphatase were normal. Her C-reactive protein was 9.9. Total protein 6.8, albumin 2.8. Her D-dimer was 0.6 mg/dL. ASSESSMENT: 1. COVID-19 infection. 2. Acute hypoxic respiratory failure without obvious examination. 3. The patient has multiple other medical problems including: A. Hypertension. B. Hyperlipidemia. C. Type 2 diabetes mellitus. D. Rheumatoid arthritis. E. Osteoarthritis. PLAN: To arrange for her to have CT angio of the chest to rule out the possibility of pulmonary embolism and hopefully if all is well, we can probably discharge her back home tomorrow as she seemed to be mostly asymptomatic and no evidence of any at least lung involvement or liver involvement by the coronavirus. ISAIAH ARIZMENDI MD DR: LUIS/jeromy JOB#: [id number] / [id number]
[2020-03-07 06:36] VITALS: BP 126/61
[2020-03-07] MEDS: CYANOCOBALAMIN (VITAMIN B-12) 1,000 MCG TABLET. PO SCH (09:01)
[2020-03-07] MEDS: MAGNESIUM OXIDE 400 MG TABLET PO SCH (09:01)
[2020-03-07] MEDS: CALCIUM CARB/VIT D3 500/200 TABLET PO SCH (09:01)
[2020-03-07] MEDS: metFORMIN XR 500 MG TAB.ER.24H PO SCH (09:01)
[2020-03-07] MEDS: ASPIRIN CHEWABLE 81 MG TABLET. PO SCH (09:01)
[2020-03-07] MEDS: METOPROLOL SUCC 24HR ER 25 MG TAB.ER.24H. PO SCH (09:02)
[2020-03-07] MEDS: LOSARTAN 50 MG TABLET. PO SCH (09:02)
[2020-03-07] MEDS: LINAGLIPTIN 5 MG TABLET PO SCH (09:02)
[2020-03-07] MEDS: amLODIPine BESYLATE 5 MG TABLET PO SCH (09:02)
[2020-03-07] MEDS: DEXAMETHASONE SOD PHOS 4 MG/ML VIAL. IVP SCH (09:03)
[2020-03-07] MEDS: ENOXAPARIN 40 MG/0.4 ML SYRINGE. SQ SCH (09:03)
[2020-03-07 10:51] VITALS: BP 128/69
--- NOTE | 2020-03-07 16:05 | DS ---
DATE OF DISCHARGE: 03/07/2020 HOSPITAL COURSE: The patient is a 75-year-old female patient who was admitted through the Emergency Room with complaint of increasing fatigue after testing positive for COVID-19 on 02/27/2020. The patient denied any chest pain, shortness of breath, palpitations, nausea, vomiting, abdominal pain, or headaches. She states she had had aching in both of her shoulders, her hips, and fever. She also reported that she has 2 episodes of diarrhea. On the day of admission, she denied any blood in her stool. The patient is currently denying any pain. She was extensively investigated in the Emergency Room and her lab work initially showed marked hypokalemia with a potassium of 2.9. Her CBC showed that she has mild leukocytosis with normochromic normocytic anemia. Her chest x-ray showed limited pulmonary infiltrate noted, pulmonary vasculature was normal, no infiltrate, minimal linear atelectasis in the retrocardiac posterior aspect that are present. She was admitted with diagnosis of COVID-19 infection, respiratory failure with hypoxia. We did continue all her medication. Her potassium was replenished. She did very well subsequently. Given that she has hypoxia, we actually did a CT angio of the chest, which showed no evidence of pulmonary emboli in the main pulmonary arteries. She has diffuse hepatic steatosis. We did actually a 6-minute walk this afternoon and her oxygen remained stable. In fact, her oxygen was 96% on room air and, therefore, a decision was made to discharge her home. PHYSICAL EXAMINATION: GENERAL: When I saw her this afternoon, she looked well and was clearly in no apparent respiratory distress. No pallor, jaundice, cyanosis, or thyromegaly. No jugular venous distention. No limb edema. VITAL SIGNS: Her heart rate was 78, blood pressure was 128/69, temperature was 97.3, respiratory rate was 20, and oxygen saturation was 96% on room air. HEAD, EYES, EARS, NOSE AND THROAT: Showed normocephalic, atraumatic. NECK: Supple. HEART: Showed normal first and second heart sounds with no gallop, rub or murmur. CHEST: Clear to auscultation. No crepitation or rhonchi. ABDOMEN: Distended, soft, nontender. NEUROLOGIC: She is grossly intact. LABORATORY DATA: Showed a white cell count of 3500, hemoglobin 11.6, hematocrit 36, MCV 85, and platelet count 280,000. Her chemistry showed a serum sodium 139, potassium 3.4, chloride 103, bicarbonate 28, anion gap of 9, BUN 13, creatinine 0.7, estimated GFR was 81 mL per minute. Her glucose was 100, calcium was 8.2. Total bilirubin, AST, ALT, alkaline phosphatase were normal. Her C-reactive protein was 9.9. Total protein 6.8, albumin was 2.8. Her D-dimer was 0.6 mg/dL. DISCHARGE MEDICATIONS: The patient was discharged home on amlodipine/benazepril 5/40 one tablet once a day, aspirin 81 mg once a day, and Lumigan 1 drop to both eyes at bedtime, biotin 5000 mcg p.o. daily, calcium carbonate and vitamin D3 daily, cyanocobalamin 1000 mcg once a day, flaxseed 1000 mg daily, hydrochlorothiazide 25 mg once a day, magnesium oxide 500 mg once a day, metformin 1000 mg daily, metoprolol 25 mg extended release once a day, naproxen 500 mg daily once a day, simvastatin 20 mg daily, sitagliptin phosphate 100 mg once a day. FINAL DISCHARGE DIAGNOSES: 1. COVID-19 infection, acute hypoxic respiratory failure, resolved. There was no evidence of any COVID-19 pneumonia or community-acquired pneumonia. No evidence of pneumothorax, congestive heart failure, pleural effusion, or pulmonary emboli. The patient has multiple other medical problems including: A. Type 2 diabetes mellitus, hypertension. B. Hyperlipidemia. C. Rheumatoid arthritis. D. She did also present with hypokalemia and I think she is on hydrochlorothiazide probably the reason for her hypokalemia and might even be contributing to her generalized weakness. ISAIAH ARIZMENDI MD DR: LUIS/jeromy JOB#: [id number] / [id number]
--- NOTE | 2020-03-07 16:08 | NUR ---
PT SIGNED D/C PAPERWORK AND IV WAS DISCONTINUED. PTS BELONGINGS WERE SENT HOME WITH PATIENT. PT WAS WHEELED OUT INTO THE WAITING ROOM BY [employer] MAINTENANCE INSTRUCTOR. PT PASSED HER 6 MINUTE WALK WITH RT AND DID NOT NEED TO BE SENT HOME WITH OXYGEN.
== END 2020-03-07 16:08 | disposition home or self-care (01) | DRG 177 ==
LOC: ER 13:41 → 1 SOUTH 15:29
PROVIDERS: ADMIT Hospitalist; ATTEND Hospitalist
DX: U07.1 COVID-19 (principal); J96.01 Acute respiratory failure with hypoxia; D64.9 Anemia, unspecified; E11.9 Type 2 diabetes mellitus without complications; E78.00 Pure hypercholesterolemia, unspecified; E78.5 Hyperlipidemia, unspecified; E87.6 Hypokalemia; I10 Essential (primary) hypertension; K76.0 Fatty (change of) liver, not elsewhere classified; M06.9 Rheumatoid arthritis, unspecified; M19.90 Unspecified osteoarthritis, unspecified site; Z80.0 Family history of malignant neoplasm of digestive organs; Z90.710 Acquired absence of both cervix and uterus
CPT/HCPCS: 36415; 71045; 71275; 80048; 80053; 82553; 82947; 83735; 85025; 85027; 85379; 86140; J1100; J1650; Q9967

== ENCOUNTER 2020-03-09 12:24 | Inpatient (IN) | payer MEDICARE, OTHER ==
[~2020-03-09] VITALS: Ht 149.9 cm; Wt 78.3 kg
[~2020-03-09 12:24] MED LIST changes: +AMLO1CAP3 PO; +ASPI-630 PO; +BIMA2.5D EACHEYE; +BIOT25006 PO; +CALC-77 PO; +CYAN250012 PO; +FLAX100031 PO; +HYDR-2145 PO; +MAGN500C10 PO; +METF10007 PO; +METO-239 PO; +NAPR500T8 PO; +SIMV20TA PO; +SITA100T PO; +[UNRECOGNIZED DRUG - OTHER]
[2020-03-09] MEDS ORDERED: IBUPROFEN 600 MG TABLET. PO ONE (12:45)
[2020-03-09] MEDS ORDERED: IV NORMAL SALINE 1,000ML 1,000 ML IV ONE (13:00)
--- NOTE | 2020-03-09 13:10 | PHYS DOC ---
Past History Past Medical History: Arthritis, Diabetes, Glaucoma, High Cholesterol, Hypertension, Other Past Surgical History: Cholecystectomy, Hysterectomy, Lumbar Laminectomy Smoking: Non-smoker Alcohol Use: None Drug Use: None Adult General Chief Complaint Chief Complaint: FEVER HPI HPI Patient is a 75-year-old female reports emergency department complaining of feeling tired all over upper back discomfort and fever at home. Patient states that she was a recent patient is [facility] that was admitted for COVID-19 positive and hypoxia, was released yesterday in which patient states she felt fine. Patient states that towards the evening time when she was getting ready to go to bed she started feeling exceptionally tired and noticed that she started running a fever however she did not take her temperature in the evening. Patient states the next morning she was still running a fever and took her temperature noting it was 99.4 oral temp. Patient states she took 2 extra strength Tylenols at 10 AM today. Patient states that she was not feeling any better and came to the emergency department for evaluation today. Patient denies chest pains, denies chest palpitations, denies shortness of breath, denies cough, denies sore throat, denies nasal congestion. Patient denies nausea, vomiting, diarrhea, or abdominal pains. Patient denies headache, loss of taste or loss of smell. Patient denies any skin rashes, increased thirst or increased urination. Patient denies any urinary tract infection type signs and symptoms. Patient states that she just feels tired and generally achy all over however her upper back feels the worst. Patient states she was diagnosed with COVID-19 virus on 27 February 2020, she lives at home with her only who was also diagnosed with the Covid virus on February 20, 2020. Patient states that her did not require hospitalization for his Covid symptoms. Review of Systems Review of Systems 14 body systems of review of systems have been reviewed. See HPI for pertinent positives and negative responses, otherwise all other systems are negative, nonpertinent or noncontributory. Current Medications Current Medications Current Medications Medications (Trade) Dose Ordered Sig/Cecilio Start Time Stop Time Status Last Admin Dose Admin Ibuprofen (Motrin) 600 mg 1X ONCE 03/09/20 12:45 03/09/20 12:51 DC Sodium Chloride 1,000 ml @ 1,000 mls/hr 1X ONCE 03/09/20 13:00 03/09/20 13:59 UNV Allergies Allergies Allergies Coded Allergies Type Severity Reaction Last Updated Verified No Known Drug Allergies 10/15/19 No Physical Exam Physical Exam Constitutional: Well developed, well nourished, no acute distress, non-toxic appearance. Patient in no apparent distress, speaking in full sentences, in no respiratory distress. HENT: Normocephalic, atraumatic, bilateral external ears normal, oropharynx moist, no oral exudates, nose normal. Eyes: PERRLA, EOMI, conjunctiva normal, no discharge. Neck: Normal range of motion, no tenderness, supple, no stridor. No meningismus signs, no nuchal rigidity appreciated. Cardiovascular:Heart rate regular rhythm, no murmur, heart sounds S1-S2. Lungs & Thorax: Bilateral breath sounds clear to auscultation all lung moreno. Room air sat during physical exam was 90%. Abdomen: Bowel sounds normal, soft, no tenderness, no masses, no pulsatile masses. Skin: Hot to touch, dry, no erythema, no rash. Back: No tenderness, no CVA tenderness. No tenderness to palpation in patient's upper back where she verbalized increased ache sensation. No midline spine tenderness Extremities: No tenderness, no cyanosis, no clubbing, ROM intact, no edema. Neurologic: Alert and oriented X 3, normal motor function, normal sensory function, no focal deficits noted. Psychologic: Affect normal, judgement normal, mood normal. Current Patient Data Lab Results Laboratory Tests Test 03/09/20 12:55 03/09/20 13:10 03/09/20 13:28 Blood Gas pH 7.50 Blood Gas PCO2 33 mmHg Blood Gas PO2 43 mmHg Blood Gas HCO3 26 mmol/L Arterial Bld O2 Saturation (Calc) 84 % FiO2 21 % White Blood Count 7.8 x10^3/uL Red Blood Count 4.23 x10^6/uL Hemoglobin 11.6 g/dL Hematocrit 35.2 % Mean Corpuscular Volume 83 fL Mean Corpuscular Hemoglobin 27 pg Mean Corpuscular Hemoglobin Concent 33 g/dL Red Cell Distribution Width 16.8 % Platelet Count 356 x10^3/uL Neutrophils (%) (Auto) 87 % Lymphocytes (%) (Auto) 6 % Monocytes (%) (Auto) 8 % Eosinophils (%) (Auto) 0 % Basophils (%) (Auto) 0 % Neutrophils # (Auto) 6.8 x10^3uL Lymphocytes # (Auto) 0.4 x10^3/uL Monocytes # (Auto) 0.6 x10^3/uL Eosinophils # (Auto) 0.0 x10^3/uL Basophils # (Auto) 0.0 x10^3/uL Segmented Neutrophils % 80 % Lymphocytes % 7 % Monocytes % 13 % Platelet Estimate Adequate Sodium Level 136 mmol/L Potassium Level 3.9 mmol/L Chloride Level 98 mmol/L Carbon Dioxide Level 30 mmol/L Anion Gap 8 Blood Urea Nitrogen 15 mg/dL Creatinine 0.9 mg/dL Estimated GFR (Cockcroft-Gault) 61.2 BUN/Creatinine Ratio 17 Glucose Level 114 mg/dL Lactic Acid Level 1.6 mmol/L Calcium Level 8.8 mg/dL Total Bilirubin 0.5 mg/dL Aspartate Amino Transf (AST/SGOT) 27 U/L Alanine Aminotransferase (ALT/SGPT) 24 U/L Alkaline Phosphatase 60 U/L Creatine Kinase 46 U/L Total Protein 7.3 g/dL Albumin 3.1 g/dL Albumin/Globulin Ratio 0.7 Urine Collection Type Unknown Urine Color Yellow Urine Clarity Clear Urine pH 8.0 Urine Specific Gambier 1.020 Urine Protein Neg Urine Glucose (UA) Neg mg/dL Urine Ketones (Stick) Neg mg/dL Urine Blood Neg Urine Nitrite Neg Urine Bilirubin Neg Urine Urobilinogen Dipstick 0.2 mg/dL Urine Leukocyte Esterase Neg Urine RBC Occ /HPF Urine WBC 5-10 /HPF Urine Squamous Epithelial Cells Few /LPF Urine Transitional Epithelial Cells Few /LPF Urine Bacteria 0 /HPF Current Medications Medications (Trade) Dose Ordered Sig/Cecilio Route PRN Reason Start Time Stop Time Status Last Admin Dose Admin Ibuprofen (Motrin) 600 mg 1X ONCE PO 03/09/20 12:45 03/09/20 12:51 DC 03/09/20 13:14 Sodium Chloride 1,000 ml @ 1,000 mls/hr 1X ONCE IV 03/09/20 13:00 03/09/20 13:59 DC 03/09/20 13:15 Ceftriaxone Sodium 1 gm/ Sodium Chloride 50 ml @ 100 mls/hr 1X ONCE IV 03/09/20 14:45 03/09/20 15:14 DC Azithromycin 500 mg/Sodium Chloride 250 ml @ 250 mls/hr 1X ONCE IV 03/09/20 14:45 03/09/20 15:44 03/09/20 14:51 Sodium Chloride 250 ml @ As Directed STK-MED ONCE .ROUTE 03/09/20 14:44 03/09/20 14:44 DC Azithromycin (Zithromax) 500 mg STK-MED ONCE IV 03/09/20 14:44 03/09/20 14:44 DC EKG EKG [] Radiology/Procedures Radiology/Procedures STATUS: REG ER ORD. PHYSICIAN: CHAN LIANG APRN REASON: covid positive, fever, hypoxia PROCEDURE: CHEST AP ONLY EXAM: Chest, single view. HISTORY: Covid 19. Fever and hypoxia. COMPARISON: 03/06/2020 FINDINGS: A frontal view of the chest is obtained. There is bilateral multifocal interstitial infiltrate. No consolidation, pleural effusion or pneumothorax is seen. There is stable chronic silhouette. IMPRESSION: Bilateral multifocal interstitial infiltrate. No consolidation is seen. Electronically signed by: Darlene Sosa MD (03/09/2020 1:11 PM) [facility] DICTATED AND SIGNED BY: DARLENE SOSA MD DATE: 03/09/20 1310 CC: CHAN LIANG APRN; ROCIO OCAMPO DO; KALA STOCK DO ~MTH0 0 Heart Score Risk Factors: Risk Factors: DM, Current or recent (<one month) smoker, HTN, HLP, family history of CAD, obesity. Risk Scores: Risk Factors: DM, Current or recent (<one month) smoker, HTN, HLP, family history of CAD, obesity. Course & Med Decision Making Course & Med Decision Making Pertinent Labs and Imaging studies reviewed. (See chart for details) 75-year-old female recently discharged from the hospital yesterday felt fine then complained of increased malaise overnight. Patient self treated with 1000 mg Tylenol for a reported fever of 99.4. Initial exam patient's temperature 102.7 oral, room air oxygen sat 90%, blood pressure and respiration rate within normal limits. Will work-up for fever of unknown origin. Pending results at this time. Room air ABG PO2 value 43, patient placed on 2 L oxygen per nasal cannula. Patient's chest x-ray concerning for bilateral pneumonia read by house radiologist as bilateral multifocal interstitial infiltrate. Patient's labs remained equivocal, Discussed patient case with Dr. Christian who agreed to assume patient care and admit to the MedSurg unit at [facility]. Care was assumed following discussion of this patient with Dr. Christian. Patient will be admitted to the MedSurg unit for COVID-19, bilateral pneumonia with hypoxia, fever. Patient will remain on 2 L per nasal cannula, a diabetic diet was ordered. Patient's repeat vital signs stable, patient now afebrile oral temp 99.4. Patient does not appear toxic, the patient is not in any respiratory distress, the patient is not in any distress. Patient's lung sounds remain clear to auscultation all lung moreno. Patient's plan of care and case was also discussed with Dr. Stock. Dragon Disclaimer Dragon Disclaimer This electronic medical record was generated, in whole or in part, using a voice recognition dictation system. Departure Departure: Impression: Primary Impression: COVID-19 virus infection Additional Impressions: Pneumonia of both lungs Hypoxia Fever Disposition: ADMITTED INPT THIS HOSP Admitting Physician: Pietro Christian (ADMIT TO MED/SURG UNIT) Condition: GUARDED Referrals: ROCIO OCAMPO DO (PCP) Problem Qualifiers Additional Impressions: Pneumonia of both lungs Pneumonia type: due to unspecified organism Lung location: unspecified part of lung Qualified Codes: J18.9 - Pneumonia, unspecified organism Fever Fever type: unspecified Qualified Codes: R50.9 - Fever, unspecified CHAN LIANG APRN Mar 09, 2020 13:10
[2020-03-09 13:11] LABS: BGAS PH 7.5 (7.35-7.45)
--- NOTE | 2020-03-09 13:14 | RAD ---
EXAM: Chest, single view. HISTORY: Covid 19. Fever and hypoxia. COMPARISON: 03/06/2020 FINDINGS: A frontal view of the chest is obtained. There is bilateral multifocal interstitial infiltr ate. No consolidation, pleural effusion or pneumothorax is seen. There is stable chronic silhouette. IMPRESSION: Bilateral multifocal interstitial infiltrate. No consolidation is seen. Electronically signed by: Darlene Travis MD (03/09/2020 1:11 PM) [facility]
[2020-03-09 13:48] LABS: BASO % 0 % (0-3); EOS % 0 % (0-3); HEMATOCRIT 35.2 % (36.0-47.0); HEMOGLOBIN 11.6 g/dL (12.0-15.5); LYMPH # 0.4 x10^3/uL (1.0-4.8); LYMPH % 6 % (24-48); MEAN CORPUSCULAR HEMOGLOBIN 27 pg (25-35); MEAN CORPUSCULAR HGB CONC 33 g/dL (31-37); MEAN CORPUSCULAR VOLUME 83 fL (79-100); MONO # 0.6 x10^3/uL (0.0-1.1); MONO % 8 % (0-9); NEUT # 6.8 x10^3uL (1.8-7.7); NEUT % 87 % (31-73); PLATELET COUNT 356 x10^3/uL (140-400); RED BLOOD COUNT 4.23 x10^6/uL (3.50-5.40); RED CELL DISTRIBUTION WIDTH 16.8 % (11.5-14.5); WHITE BLOOD COUNT 7.8 x10^3/uL (4.0-11.0)
[2020-03-09 13:50] LABS: CALCIUM 8.8 mg/dL (8.5-10.1); CREATININE 0.9 mg/dL (0.6-1.0); GFR 61.2; POTASSIUM 3.9 mmol/L (3.5-5.1)
[2020-03-09 13:56] LABS: ALBUMIN 3.1 g/dL (3.4-5.0); ALBUMIN/GLOBULIN RATIO 0.7 (1.0-1.7); TOTAL BILIRUBIN 0.5 mg/dL (0.2-1.0); TOTAL PROTEIN 7.3 g/dL (6.4-8.2)
[2020-03-09] MEDS ORDERED: IV NORMAL SALINE 250ML 250 ML ONE (14:44)
[2020-03-09] MEDS ORDERED: AZITHROMYCIN 500 MG VIAL. IV ONE (14:44)
[2020-03-09] MEDS ORDERED: AZITHROMYCIN 500 MG in IV NORMAL SALINE 250ML 250 ML IV ONE (14:45)
[2020-03-09 14:54] LABS: BACTERIA,URINE 0 /HPF (0-FEW); BILIRUBIN,URINE NEG (NEG); CLARITY,URINE CLEAR; COLOR,URINE YELLOW; GLUCOSE,URINE NEG (NEG); NITRITE,URINE NEG (NEG); RBC,URINE OCC /HPF (0-2); SQUAMOUS EPITHELIAL CELL,UR FEW /LPF; UROBILINOGEN,URINE 0.2 mg/dL (0.2 mg/dL)
[2020-03-09 15:04] LABS: % LYMPHS 7 % (24-48); % MONOS 13 % (0-10); % SEGS 80 % (35-66); PLT ESTIMATE ADEQUATE (ADEQUATE)
[2020-03-09] MEDS ORDERED: IV NORMAL SALINE 50ML 50 ML ONE (15:45)
[2020-03-09] MEDS ORDERED: cefTRIAXone SODIUM 1 GM VIAL ONE (15:46)
--- NOTE | 2020-03-09 17:37 | NUR ---
PATIENT ARRIVED TO UNIT VIA EMS. PATIENT'S VS OBTAINED AND ARE STABLE. PATIENT IS ORIENTED TO ROOM AND PROCEDURES. PATIENT IS GIVEN ALL ADMISSION TEACHING. PATIENT IS OFFERED FOOD AND DRINK. PT IS RESTING IN BED AT THIS TIME, WILL CONTINUE TO MONITOR.
[2020-03-09 17:41] VITALS: BP 136/83
[2020-03-09 19:59] VITALS: BP 117/72
[2020-03-09] MEDS: SIMVASTATIN 20 MG TABLET PO SCH (20:15)
[2020-03-09] MEDS: LATANOPROST 0.005% OPHTH SOLUTION 2.5ML BOTTLE. OD SCH (20:15)
[2020-03-09 20:35] VITALS: BP 136/83
[2020-03-09 23:00] VITALS: BP 123/77
[2020-03-09] MEDS: ACETAMINOPHEN 325 MG TABLET PO PRN (23:21)
[2020-03-10] MEDS: ACETAMINOPHEN 325 MG TABLET PO PRN ×2 (05:23→20:28)
[2020-03-10 05:42] VITALS: BP 137/78
[2020-03-10 06:34] LABS: HEMATOCRIT 33.2 % (36.0-47.0); HEMOGLOBIN 10.9 g/dL (12.0-15.5); RED CELL DISTRIBUTION WIDTH 17.8 % (11.5-14.5); WHITE BLOOD COUNT 6.2 x10^3/uL (4.0-11.0)
[2020-03-10 06:55] LABS: ALBUMIN 2.7 g/dL (3.4-5.0); ALBUMIN/GLOBULIN RATIO 0.7 (1.0-1.7); CALCIUM 7.8 mg/dL (8.5-10.1); CREATININE 0.7 mg/dL (0.6-1.0); GFR 81.8; POTASSIUM 3.7 mmol/L (3.5-5.1); TOTAL BILIRUBIN 0.4 mg/dL (0.2-1.0); TOTAL PROTEIN 6.5 g/dL (6.4-8.2)
[2020-03-10] MEDS: CALCIUM CARB/VIT D3 500/200 TABLET PO SCH (07:49)
[2020-03-10] MEDS: hydroCHLOROthiazide 25 MG TABLET PO SCH (07:49)
[2020-03-10] MEDS: MAGNESIUM OXIDE 400 MG TABLET PO SCH (07:49)
[2020-03-10] MEDS: metFORMIN 500 MG TABLET PO SCH (07:49)
[2020-03-10] MEDS: ASPIRIN CHEWABLE 81 MG TABLET. PO SCH (07:49)
[2020-03-10] MEDS: amLODIPine BESYLATE 5 MG TABLET PO SCH (07:49)
[2020-03-10] MEDS: LINAGLIPTIN 5 MG TABLET PO SCH (07:49)
[2020-03-10] MEDS: CYANOCOBALAMIN (VITAMIN B-12) 1,000 MCG TABLET. PO SCH (07:50)
[2020-03-10] MEDS: LISINOPRIL 20 MG TABLET PO SCH (07:50)
[2020-03-10] MEDS: METOPROLOL SUCC 24HR ER 25 MG TAB.ER.24H. PO SCH (07:50)
[2020-03-10] MEDS: DEXAMETHASONE SOD PHOS 4 MG/ML VIAL. IVP SCH (07:51)
[2020-03-10] MEDS ORDERED: NON FORMULARY ITEM (Biotin 5,000 MCG) PO SCH (09:00)
[2020-03-10] MEDS ORDERED: NON FORMULARY ITEM (Flaxseed Oil (Flaxseed) 1,000 MG) PO SCH (09:00)
[2020-03-10 10:17] VITALS: BP 103/68
[2020-03-10 15:18] VITALS: BP 110/53
[2020-03-10] MEDS ORDERED: REMDESIVIR LOAD in IV NORMAL SALINE 250ML TV IV ONE (16:00)
[2020-03-10] MEDS: ENOXAPARIN 40 MG/0.4 ML SYRINGE. SQ SCH (16:30)
[2020-03-10] MEDS: AZITHROMYCIN 500 MG in IV NORMAL SALINE 250ML 250 ML IV SCH (18:00)
--- NOTE | 2020-03-10 18:17 | HP ---
ADMIT DATE: 03/09/2020 HISTORY OF PRESENT ILLNESS: The patient is a 75-year-old female patient who was discharged on 03/07/2020. She was admitted with COVID-19 infection and acute hypoxic respiratory failure that has resolved. There was no evidence of any COVID-19 pneumonia or community-acquired pneumonia. No evidence of pneumothorax, congestive heart failure, pleural effusion or pulmonary emboli and we did actually 6-minute walk and she did very well and therefore this was discharged; however, the patient came back again on 03/09 with complaining of feeling tired all over, upper back discomfort and fever at home. The patient states that she was here and was admitted for COVID-19 positive and hypoxia, was released at that time she felt fine. The patient stated toward the evening time when she was getting ready to go to bed, she started feeling exceptionally tired and noted that she has started running fever; however, she did not take her temperature in the evening. The patient stated that the next morning, she was still running fever and took her temperature and it was 99.4. The patient states she took 2 Extra Strength Tylenol at 10:00 a.m. on the day of admission. She stated that she was not feeling any better and came to the Emergency Room for further evaluation. The patient denied any chest pain, denied any palpitation, shortness of breath, cough. Denied any sore throat. Denied any nasal congestion. The patient denied any nausea, vomiting, diarrhea or abdominal pain. Denied any headache, loss of taste, loss of smell. Denied any skin rash, increased thirst, increased urination. She was also diagnosed with COVID virus in 02/20/2020. She stated that her did not require hospitalization for his COVID symptoms. She was evaluated in the Emergency Room and has had lab work with unremarkable blood count. Her chemistry was also unremarkable. Her blood gases showed a pH of 7.50, pCO2 of 33, pO2 of 43, bicarbonate 26 and oxygen saturation was 94% on room air. Her D-dimer was high at 1.93 and urinalysis was essentially unremarkable. The patient has chest x-ray, which showed that she has bilateral multifocal interstitial infiltrate, no consolidation and therefore, the patient was admitted with COVID-19 pneumonia, acute hypoxic respiratory failure. She was started on IV antibiotic for possible community-acquired pneumonia together with dexamethasone as well as ceftriaxone and Zithromax. PAST MEDICAL HISTORY: Significant for type 2 diabetes mellitus, hypertension, hyperlipidemia, rheumatoid arthritis. PAST SURGICAL HISTORY: Significant for back surgery, total abdominal hysterectomy, cholecystectomy, left eye cataract extraction, benign lump was removed from her back. ALLERGIES: She has no known drug allergies. FAMILY HISTORY: She has 1 brother and 2 sisters, all older. Her brother is alive at the age of 95. Her sister at 85 and 80. Her mother at age of 69 because of cancer of the pancreas. Her father at age of 87 because of kidney failure. SOCIAL HISTORY: She is , has a son and a daughter. She never smoked. She quit smoking about 45 years ago according to her. She does not drink alcohol or use recreational drugs. 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 MEDICATIONS: She is on following medications: She is on simvastatin 20 mg at bedtime, metoprolol succinate 25 mg once a day, amlodipine besylate/benazepril 5/40 one tablet once a day, aspirin 81 mg once a day, naproxen 500 mg once a day, calcium carbonate and citrate with vitamin D3 one tablet once a day, hydrochlorothiazide 25 mg once a day, Lumigan 1 drop to both eyes at bedtime, magnesium oxide 500 mg once a day, metformin 1000 mg daily with breakfast, sitagliptin phosphate for Januvia 100 mg once a day, Biotin 5000 mcg p.o. daily, cyanocobalamin 3000 mcg once a day, flaxseed 1000 mg capsules once a day. REVIEW OF SYSTEMS: As per history of present illness. PHYSICAL EXAMINATION: GENERAL: On arrival to the Emergency Room, she looked well and was clearly in no apparent respiratory distress. No pallor, jaundice, cyanosis or thyromegaly. No jugular venous distention. No lower limb edema. VITAL SIGNS: Her heart rate was 83, blood pressure was 136/60, temperature 102.7, respiratory rate 20, and oxygen saturation was 89% on room air. HEAD, EYES, EARS, NOSE AND THROAT: Showed normocephalic, atraumatic. NECK: Supple. HEART: Normal first and second heart sounds. No gallop, rub or murmur. CHEST: Clear to auscultation. No crepitation or rhonchi. ABDOMEN: Distended, soft, nontender. NEUROLOGIC: She was awake, alert, responding appropriately. All cranial nerves intact. EXTREMITIES: She moves extremities without difficulty. She ambulates without assistance or assistive devices. LABORATORY DATA: Showed a white cell count of 7800, hemoglobin 12, hematocrit 35, MCV 83 and platelet count 356,000. Her chemistry showed a serum sodium 136, potassium 3.9, chloride 98, bicarbonate 30, anion gap of 8, BUN 15, creatinine 0.9, estimated GFR was 61 mL per minute. Her glucose 114, her calcium was 8.8. Total bilirubin, AST, ALT, alkaline phosphatase. CK was 46. Total protein 7.3, albumin was 3.1. Her D-dimer was 1.93. Urinalysis was unremarkable and blood gases showed a pH of 7.50, pCO2 of 33, pO2 of 43, her bicarbonate 26 and oxygen saturation was 94% on FiO2 of 21%. ASSESSMENT AND PLAN: 1. The patient was admitted with COVID-19 pneumonia. 2. Acute hypoxic respiratory failure. 3. The patient has multiple other medical problems including hypertension, hyperlipidemia, type 2 diabetes, and questionable rheumatoid arthritis. The patient was started on ceftriaxone, Zithromax, dexamethasone 6 mg IV daily. We will start her also on remdesivir. Continue with oxygen supplementation. We will also start her on Lovenox 40 mg subcutaneously once a day for DVT prophylaxis and we will monitor her daily. ISAIAH ARIZMENDI MD DR: LUIS/jeromy JOB#: [id number] / [id number]
[2020-03-10 19:00] VITALS: BP 111/69
[2020-03-10] MEDS: LATANOPROST 0.005% OPHTH SOLUTION 2.5ML BOTTLE. OD SCH (20:28)
[2020-03-10] MEDS: SIMVASTATIN 20 MG TABLET PO SCH (20:29)
[2020-03-10 23:45] VITALS: BP 121/70
[2020-03-11 05:56] VITALS: BP 121/79
[2020-03-11 06:25] LABS: HEMATOCRIT 33.4 % (36.0-47.0); RED BLOOD COUNT 4.01 x10^6/uL (3.50-5.40); RED CELL DISTRIBUTION WIDTH 17.8 % (11.5-14.5); WHITE BLOOD COUNT 4.2 x10^3/uL (4.0-11.0)
[2020-03-11 06:46] LABS: ALBUMIN 2.4 g/dL (3.4-5.0); ALBUMIN/GLOBULIN RATIO 0.6 (1.0-1.7); CALCIUM 8.2 mg/dL (8.5-10.1); CREATININE 0.6 mg/dL (0.6-1.0); GFR 97.7; POTASSIUM 3.7 mmol/L (3.5-5.1); TOTAL BILIRUBIN 0.2 mg/dL (0.2-1.0); TOTAL PROTEIN 6.6 g/dL (6.4-8.2)
[2020-03-11] MEDS: ASPIRIN CHEWABLE 81 MG TABLET. PO SCH (08:45)
[2020-03-11] MEDS: CYANOCOBALAMIN (VITAMIN B-12) 1,000 MCG TABLET. PO SCH (08:45)
[2020-03-11] MEDS: METOPROLOL SUCC 24HR ER 25 MG TAB.ER.24H. PO SCH (08:45)
[2020-03-11] MEDS: hydroCHLOROthiazide 25 MG TABLET PO SCH (08:45)
[2020-03-11] MEDS: CALCIUM CARB/VIT D3 500/200 TABLET PO SCH (08:45)
[2020-03-11] MEDS: MAGNESIUM OXIDE 400 MG TABLET PO SCH (08:46)
[2020-03-11] MEDS: amLODIPine BESYLATE 5 MG TABLET PO SCH (08:46)
[2020-03-11] MEDS: LISINOPRIL 20 MG TABLET PO SCH (08:46)
[2020-03-11] MEDS: DEXAMETHASONE SOD PHOS 4 MG/ML VIAL. IVP SCH (08:46)
[2020-03-11] MEDS: metFORMIN 500 MG TABLET PO SCH (08:46)
[2020-03-11] MEDS: LINAGLIPTIN 5 MG TABLET PO SCH (08:46)
[2020-03-11 10:26] VITALS: BP 117/73
[2020-03-11 14:36] VITALS: BP 102/65
[2020-03-11] MEDS: REMDESIVIR 100mg in NORMAL SALINE 250ML X 4 DAYS IV SCH (17:14)
[2020-03-11] MEDS: ENOXAPARIN 40 MG/0.4 ML SYRINGE. SQ SCH (17:14)
[2020-03-11] MEDS: AZITHROMYCIN 500 MG in IV NORMAL SALINE 250ML 250 ML IV SCH (18:00)
[2020-03-11 19:10] VITALS: BP 122/73
[2020-03-11] MEDS: SIMVASTATIN 20 MG TABLET PO SCH (20:03)
[2020-03-11] MEDS: LATANOPROST 0.005% OPHTH SOLUTION 2.5ML BOTTLE. OD SCH (20:04)
[2020-03-11] MEDS: ACETAMINOPHEN 325 MG TABLET PO PRN (20:04)
[2020-03-12 05:33] VITALS: BP_SYST 125; BP_SYST 132; BP_DIAS 52; BP_DIAS 78
[2020-03-12] MEDS: amLODIPine BESYLATE 5 MG TABLET PO SCH (08:16)
[2020-03-12] MEDS: ASPIRIN CHEWABLE 81 MG TABLET. PO SCH (08:16)
[2020-03-12] MEDS: CYANOCOBALAMIN (VITAMIN B-12) 1,000 MCG TABLET. PO SCH (08:16)
[2020-03-12] MEDS: LISINOPRIL 20 MG TABLET PO SCH (08:17)
[2020-03-12] MEDS: MAGNESIUM OXIDE 400 MG TABLET PO SCH (08:17)
[2020-03-12] MEDS: LINAGLIPTIN 5 MG TABLET PO SCH (08:17)
[2020-03-12] MEDS: CALCIUM CARB/VIT D3 500/200 TABLET PO SCH (08:17)
[2020-03-12] MEDS: hydroCHLOROthiazide 25 MG TABLET PO SCH (08:17)
[2020-03-12] MEDS: METOPROLOL SUCC 24HR ER 25 MG TAB.ER.24H. PO SCH (08:17)
[2020-03-12] MEDS: ACETAMINOPHEN 325 MG TABLET PO PRN (08:17)
[2020-03-12] MEDS: metFORMIN 500 MG TABLET PO SCH (08:18)
[2020-03-12] MEDS: DEXAMETHASONE SOD PHOS 4 MG/ML VIAL. IVP SCH (08:18)
[2020-03-12 11:35] VITALS: BP 118/69
--- NOTE | 2020-03-12 12:49 | PN ---
DATE: 03/11/2020 SUBJECTIVE: The patient is resting slightly propped up in bed. She continues to complain of cough, which is mostly dry, and shortness of breath on exertion. She continues to desaturate with exertion and she has oxygen saturation about 91-93% on 5 liters of oxygen. Has had no episodes of fever over the last 48 hours. PHYSICAL EXAMINATION: GENERAL: When I examined her, she looked well and was clearly in no apparent respiratory distress. No pallor, jaundice, cyanosis or thyromegaly. No jugular venous distention. No limb edema. VITAL SIGNS: Her heart rate was 64, blood pressure was 121/70, temperature 97.3, respiratory rate was 20, and oxygen saturation was 93% on 5 liters of oxygen. HEAD, EYES, EARS, NOSE AND THROAT: Normocephalic, atraumatic. NECK: Supple. HEART: Normal first and second heart sounds. No gallop or murmur. CHEST: Clear to auscultation. No crepitation or rhonchi. ABDOMEN: Distended, soft, nontender. NEUROLOGIC: She was grossly intact. Her intake over the last 24 hours was 2300, no output was recorded. LABORATORY DATA: Her lab work showed a white cell count of 4200, hemoglobin 11, hematocrit 33, MCV 83 and platelet count 376,000. Her chemistry showed serum sodium 138, potassium 3.7, chloride 104, bicarbonate 27, anion gap of 7, BUN 13, creatinine 0.6, estimated GFR was 98 mL per minute, glucose 109, calcium was 8.2. Total bilirubin, AST, ALT, and alkaline phosphatase were normal. Total protein 6.6, albumin was 2.4. Her D-dimer has definitely risen to 1.63 from 0.6 on 03/06/2020. Her urinalysis is essentially unremarkable. ASSESSMENT: 1. COVID-19 pneumonia. 2. Acute hypoxic respiratory failure. 3. The patient has multiple other medical problems including: A. Hypertension. B. Hyperlipidemia. C. Type 2 diabetes mellitus. D. Questionable rheumatoid arthritis. PLAN: 1. Continue with IV ceftriaxone and Zithromax. 2. Continue with dexamethasone. 3. Continue with remdesivir. 4. Continue with oxygen supplementation. 5. Continue Lovenox 40 mg subcutaneously once a day for DVT prophylaxis. ISAIAH ARIZMENDI MD DR: Christie JOB#: [id number] / [id number]
[2020-03-12 14:36] VITALS: BP 119/73
[2020-03-12] MEDS: REMDESIVIR 100mg in NORMAL SALINE 250ML X 4 DAYS IV SCH (16:45)
[2020-03-12] MEDS: AZITHROMYCIN 500 MG in IV NORMAL SALINE 250ML 250 ML IV SCH (16:46)
[2020-03-12] MEDS: ENOXAPARIN 40 MG/0.4 ML SYRINGE. SQ SCH (16:47)
[2020-03-12 19:25] VITALS: BP 120/67
[2020-03-12] MEDS: SIMVASTATIN 20 MG TABLET PO SCH (19:57)
[2020-03-12] MEDS: HYDROcodone/CHLORPHEN POLIS 5 ML SUS.ER.12H PO PRN (19:57)
[2020-03-12] MEDS: LACTOBACILLUS RHAMNOSUS GG 1 CAPSULE. PO SCH (19:57)
[2020-03-12] MEDS: LATANOPROST 0.005% OPHTH SOLUTION 2.5ML BOTTLE. OD SCH (19:58)
--- NOTE | 2020-03-12 23:21 | PN ---
DATE: 03/12/2020 ATTENDING PHYSICIAN: Pietro Christian MD SUBJECTIVE: Still has a cough, dyspnea with minimal exertion. Appetite is fair. OBJECTIVE FINDINGS: VITAL SIGNS: Blood pressure today is 118/69 mmHg, pulse 66 and regular, temperature 97.9 degrees Fahrenheit, oxygen saturation still requiring 5 liters of nasal cannula to maintain 92% saturation. HEENT: Head is without trauma. Pupils are reactive. Sclerae are nonicteric. Oropharynx is clear. NECK: Supple, no bruits. LUNGS: Coarse rhonchi bilaterally. CARDIOVASCULAR: Showed regular heart tones. No gallops. ABDOMEN: Soft. EXTREMITIES: Without edema. NEUROLOGIC: Focally intact. SKIN: Warm and dry. LABORATORY DATA: ABGs noted. IMAGING DATA: Chest x-ray noted. ASSESSMENT: 1. A 75-year-old female with COVID-19 pneumonia. 2. Acute hypoxemic respiratory failure, on supplemental oxygen. 3. Essential hypertension. 4. Type 2 diabetes. 5. Questionable rheumatoid arthritis. PLAN: 1. Continue supplemental oxygen with weaning down process. 2. Continue remdesivir per protocol. 3. Continue Decadron. 4. Home meds continued. 5. Diet as tolerated. 6. Tussionex p.r.n. cough. PAKO AC MD DR: SHARON/jeromy JOB#: [id number] / [id number]
[2020-03-13 00:35] VITALS: BP 123/69
--- NOTE | 2020-03-13 04:57 | NUR ---
PT IS STILL REQUIRING O2 AT 5L TO KEEP SATS 91-93%. PT C/O OF DRY HACKING COUGH WITH ANY AMOUNT OF ACTIVITY. PRN TUSSIONEX GIVEN AT HS. REPORTS FEELING MILDLY BETTER THIS MORNING.
[2020-03-13 06:04] VITALS: BP 131/72
[2020-03-13 06:19] LABS: ALBUMIN 2.4 g/dL (3.4-5.0); ALBUMIN/GLOBULIN RATIO 0.6 (1.0-1.7); CALCIUM 7.9 mg/dL (8.5-10.1); CREATININE 0.7 mg/dL (0.6-1.0); GFR 81.8; POTASSIUM 3.8 mmol/L (3.5-5.1); TOTAL BILIRUBIN 0.2 mg/dL (0.2-1.0); TOTAL PROTEIN 6.4 g/dL (6.4-8.2)
[2020-03-13] MEDS: CALCIUM CARB/VIT D3 500/200 TABLET PO SCH (07:54)
[2020-03-13] MEDS: DEXAMETHASONE SOD PHOS 4 MG/ML VIAL. IVP SCH (07:54)
[2020-03-13] MEDS: LISINOPRIL 20 MG TABLET PO SCH (07:55)
[2020-03-13] MEDS: CYANOCOBALAMIN (VITAMIN B-12) 1,000 MCG TABLET. PO SCH (07:55)
[2020-03-13] MEDS: hydroCHLOROthiazide 25 MG TABLET PO SCH (07:55)
[2020-03-13] MEDS: LINAGLIPTIN 5 MG TABLET PO SCH (07:55)
[2020-03-13] MEDS: metFORMIN 500 MG TABLET PO SCH (07:55)
[2020-03-13] MEDS: amLODIPine BESYLATE 5 MG TABLET PO SCH (07:55)
[2020-03-13] MEDS: MAGNESIUM OXIDE 400 MG TABLET PO SCH (07:56)
[2020-03-13] MEDS: METOPROLOL SUCC 24HR ER 25 MG TAB.ER.24H. PO SCH (07:56)
[2020-03-13] MEDS: LACTOBACILLUS RHAMNOSUS GG 1 CAPSULE. PO SCH ×2 (07:56→19:27)
[2020-03-13] MEDS: ASPIRIN CHEWABLE 81 MG TABLET. PO SCH (07:56)
[2020-03-13 10:44] VITALS: BP 120/71
--- NOTE | 2020-03-13 12:26 | PN ---
DATE: 03/13/2020 ATTENDING PHYSICIANS: Dr. Christian and Dr. Ac. SUBJECTIVE: Cough is better. She is not dyspneic. She is otherwise stable. OBJECTIVE FINDINGS: VITAL SIGNS: Blood pressure today is 120/71 mmHg, pulse 68 and regular, temperature 97.7 degrees Fahrenheit, oxygen saturation 94% on 4 liters by nasal cannula. HEENT: Head is without trauma. Pupils are reactive. Sclerae nonicteric. NECK: Supple, no bruits. LUNGS: Good breath sounds with good air movement. No rhonchi. CARDIOVASCULAR: Showed regular heart tones. No gallops. ABDOMEN: Soft. EXTREMITIES: Without edema. NEUROLOGIC: Nonfocal intact. No deficits. SKIN: Warm and dry. ASSESSMENT: 1. A 75-year-old female with COVID-19 pneumonia. 2. Acute hypoxemic respiratory failure, on supplemental oxygen. 3. Essential hypertension. 4. Type 2 diabetes. 5. Questionable rheumatoid arthritis. PLAN: 1. We will continue to wean down supplemental oxygen. 2. Finish remdesivir per protocol today is day #3. 3. Continue Decadron. 4. Diet as tolerated. 5. Tussionex p.r.n., it has helped. PAKO AC MD DR: SHARON/jeromy JOB#: [id number] / [id number]
--- NOTE | 2020-03-13 15:11 | NUR ---
NSG NOTE; O2 WEANING WAS ON O2 AT 5L THIS AM WITH O2 SAT 98%. OVER THE COARSE OF 6 HRs, WE LOWERED HER O2 RATE 1 L AT A TIME WITH O2 SATS STAYING IN THE UPPER 90s. PT CURRENTLY ON O2 1L
[2020-03-13 15:17] VITALS: BP 128/74
[2020-03-13] MEDS: AZITHROMYCIN 500 MG in IV NORMAL SALINE 250ML 250 ML IV SCH (16:20)
[2020-03-13] MEDS: REMDESIVIR 100mg in NORMAL SALINE 250ML X 4 DAYS IV SCH (16:20)
[2020-03-13] MEDS: ENOXAPARIN 40 MG/0.4 ML SYRINGE. SQ SCH (16:21)
[2020-03-13 19:25] VITALS: BP 129/74
[2020-03-13] MEDS: SIMVASTATIN 20 MG TABLET PO SCH (19:27)
[2020-03-13] MEDS: HYDROcodone/CHLORPHEN POLIS 5 ML SUS.ER.12H PO PRN (19:27)
[2020-03-13] MEDS: LATANOPROST 0.005% OPHTH SOLUTION 2.5ML BOTTLE. OD SCH (19:28)
[2020-03-13 23:24] VITALS: BP 125/69
[2020-03-14 05:53] VITALS: BP 120/71
[2020-03-14] MEDS: LACTOBACILLUS RHAMNOSUS GG 1 CAPSULE. PO SCH (09:18)
[2020-03-14] MEDS: LISINOPRIL 20 MG TABLET PO SCH (09:18)
[2020-03-14] MEDS: CALCIUM CARB/VIT D3 500/200 TABLET PO SCH (09:18)
[2020-03-14] MEDS: hydroCHLOROthiazide 25 MG TABLET PO SCH (09:18)
[2020-03-14] MEDS: MAGNESIUM OXIDE 400 MG TABLET PO SCH (09:18)
[2020-03-14] MEDS: CYANOCOBALAMIN (VITAMIN B-12) 1,000 MCG TABLET. PO SCH (09:18)
[2020-03-14] MEDS: DEXAMETHASONE SOD PHOS 4 MG/ML VIAL. IVP SCH (09:19)
[2020-03-14] MEDS: LINAGLIPTIN 5 MG TABLET PO SCH (09:19)
[2020-03-14] MEDS: METOPROLOL SUCC 24HR ER 25 MG TAB.ER.24H. PO SCH (09:19)
[2020-03-14] MEDS: metFORMIN 500 MG TABLET PO SCH (09:19)
[2020-03-14] MEDS: amLODIPine BESYLATE 5 MG TABLET PO SCH (09:19)
[2020-03-14] MEDS: ASPIRIN CHEWABLE 81 MG TABLET. PO SCH (09:19)
[2020-03-14] MEDS ORDERED: REMDESIVIR 100mg in NORMAL SALINE 250ML X 4 DAYS IV SCH (10:00)
[2020-03-14 11:10] VITALS: BP 117/71
--- NOTE | 2020-03-14 13:41 | DS ---
DATE OF DISCHARGE: 03/14/2020 ATTENDING PHYSICIAN: Dr. Christian and Dr. Ac. FINAL DISCHARGE DIAGNOSES: 1. COVID-19 pneumonia. 2. Acute hypoxemic respiratory failure, improved. 3. Essential hypertension. 4. Type 2 diabetes. 5. Questionable rheumatoid arthritis. HISTORY AND PHYSICAL: This is a 75-year-old female with known COVID-19 pneumonia. She was admitted for further treatment and evaluation. She did have respiratory failure requiring supplemental oxygen. PHYSICAL EXAMINATION: Please see the dictated note. PERTINENT LABORATORY AND X-RAY STUDIES: Admission hemoglobin was 11.6 g/dL with white count 7800. Nonfasting blood sugars were drawn and in the low 100s. Her chemistry panel on admission showed a normal creatinine of 0.7 mg/dL. Electrolytes are within normal range. Transaminase is unremarkable. IMAGING STUDIES: Chest x-ray showed bilateral multifocal interstitial infiltrates without any consolidation. COURSE IN THE HOSPITAL: The patient was admitted. She was started on Decadron. In addition, the remdesivir protocol, she received 4 full days of intravenous remdesivir. Gradually, she improved daily. Supplemental oxygen was weaned down to the point that for the 48 hours prior to discharge, she had adequate saturations on room air. On the fifth hospital day, the patient's blood pressure 117/78. Lungs were clear. Heart rate was 60 per minute, temperature was 97.6 degrees Fahrenheit, and her oxygen saturation 94% on room air. She is discharged home with a script for Tussionex 5 mL every 12 hours p.r.n. pain and continuation of her home meds including amlodipine and benazepril 1 daily, aspirin 81 mg daily, Lumigan eye drops, biotin, calcium, vitamin B12, flaxseed oil, metformin 1000 b.i.d., metoprolol 25 mg daily, Zocor and Januvia 100 mg daily. For now, we stopped the hydrochlorothiazide and the Naprosyn. She will follow up with her PCP as scheduled. She was discharged then from our hospital in stable condition with explicit instructions and followup care. TOTAL DISCHARGE TIME SPENT: [address]. PAKO AC MD DR: SHARON/jeromy JOB#: [id number] / [id number]
== END 2020-03-14 14:00 | disposition home health service (06) | DRG 177 ==
LOC: ER 12:24 → 1 SOUTH 15:07 → ER 17:20
PROVIDERS: ADMIT Internal Medicine; ATTEND Internal Medicine
PROC: XW033E5 Introduction of Remdesivir Anti-infective into Peripheral Vein, Percutaneous Approach, New Technology Group 5 (ICD-10-PCS; principal; 2020-03-10)
DX: U07.1 COVID-19 (principal); J96.01 Acute respiratory failure with hypoxia; J12.82 Pneumonia due to coronavirus disease 2019; E11.9 Type 2 diabetes mellitus without complications; E78.00 Pure hypercholesterolemia, unspecified; E78.5 Hyperlipidemia, unspecified; I10 Essential (primary) hypertension; M06.9 Rheumatoid arthritis, unspecified; M19.90 Unspecified osteoarthritis, unspecified site; Z79.82 Long term (current) use of aspirin; Z79.84 Long term (current) use of oral hypoglycemic drugs; Z79.899 Other long term (current) drug therapy; Z80.0 Family history of malignant neoplasm of digestive organs; Z87.891 Personal history of nicotine dependence; Z90.710 Acquired absence of both cervix and uterus
CPT/HCPCS: 36415; 71045; 71275; 80048; 80053; 81001; 82550; 82553; 82803; 82947; 83605; 83735; 85007; 85025; 85027; 85379; 86140; 87040; 87086; 96361; 96365; 96367; 99285; J0456; J0696; J1100; J1650; J7050; Q9967; J7030

== ENCOUNTER → 2020-05-21 | Outpatient (CLI) | payer MEDICARE, OTHER ==
--- NOTE | 2020-05-21 16:16 | RAD ---
Clinical Indications: TIA, hypertension, dizziness and history of smoking.. Exam : Carotid Duplex with Grayscale Ultrasound and Spectral and Color Doppler Analysis: PQRS Compliance Statement - Stenosis calculations for CT, MR and conventional angiography are based u josé measurement of the distal ICA diameter in accordance with the NASCET methodology. Stenosis calcu lations for carotid ultrasound studies are derived from validated velocity criteria which are known t o correlate with the NASCET methodology. Comparison study: None available. Findings: The common, internal and external carotid arteries were examined by grayscale, color and s pectral Doppler ultrasound. There is no evidence of significant atherosclerotic disease or significa nt stenosis in the visualized vessels. Flow in both vertebral arteries was antegrade and normal. Th e following are the velocities and ratios in the carotid arteries on both sides: RIGHT ICA PV: 72cm/sec RIGHT CCA PV: 65cm/sec RIGHT ICA ED: 15cm/sec RIGHT IC/CCPV: 1.1 RIGHT VERTEBRAL: antegrade flow RIGHT % STENOSIS: 0 LEFT ICA PV: 63cm/sec LEFT CCA PV: 62cm/sec LEFT ICA ED: 21cm/sec LEFT IC/CCPV: 1 LEFT VERTEBRAL: antegrade flow LEFT % STENOSIS: 0 <50% ICA Stenosis: PSV < 125cm/s (EDV < 40cm/s; SVR < 2.0) 50-69% ICA Stenosis: PSV < 125-229cm/s (EDV 40-99cm/s; SVR 2.0-3.9) >70% ICA Stenosis: PSV > 230cm/s (EDV >100cm/s; SVR >4.0) Impression: Normal bilateral carotid and vertebral artery spectral and color Doppler analysis exam. Electronically signed by: Russell Hare MD (05/21/2020 4:14 PM) [id number]
== END ==
LOC: US 10:43
PROVIDERS: ATTEND Psychiatry & Neurology Neurology
DX: G45.9 Transient cerebral ischemic attack, unspecified (principal); I10 Essential (primary) hypertension; R42 Dizziness and giddiness; Z87.891 Personal history of nicotine dependence
CPT/HCPCS: 93880